=== PATIENT | female | born 1955 | race Caucasian/White ===

== ENCOUNTER 2022-04-21 13:50 | Outpatient (CLI) | payer OTHER, SELFPAY ==
--- NOTE | 2022-04-21 14:00 | CRLHL7_ITS ---
For Patients: As a result of the Cures Act, medical imaging exams and procedure reports are released immediately into your electronic medical record. You may view this report before your referring provider. If you have questions, please contact your health care provider. BILATERAL SCREENING MAMMOGRAM WITH COMPUTER-AIDED DETECTION AND TOMOSYNTHESIS TECHNIQUE: CC and MLO views were obtained. These mammographic images have been obtained using full-field digital technique. These mammographic images were interpreted with the benefit of computer-aided detection. Breast Tomosynthesis was used in this interpretation. COMPARISON FILM: 03/12/21, 03/11/20, 03/09/19. FINDINGS: There are scattered areas of fibroglandular density IMPRESSION: There is no radiographic evidence for malignancy. ASSESSMENT: BI-RADS Category 1: Negative RECOMMENDATION: Routine screening mammogram in 1 year. A lay language report of this examination will be provided to the patient. Kaushal Arceo M.D. Diagnostic Radiologist [email or web address] KIEL/juan diego Transcribed: 9:30 p.m. ROMAINE/Dictated by: Kaushal Arceo MD @ 04/22/2022 8:48:00 AM (Electronically Signed)
== END 2022-04-21 13:51 | disposition home or self-care (01) ==
LOC: MAMMO 13:52
PROVIDERS: PCP Internal Medicine; Visit Provider Internal Medicine
DX: Z12.31 Encounter for screening mammogram for malignant neoplasm of breast (principal)
CPT/HCPCS: 77063; 77067

== ENCOUNTER 2022-08-10 07:31 | Outpatient (CLI) | payer OTHER, SELFPAY ==
[2022-08-10 09:32] LABS: Albumin* 4.2 g/dL (3.3-5.0); Chloride* 104 mmol/L (96-114); Potassium* 4.5 mmol/L (3.6-5.1); Sodium* 134 mmol/L (135-149)
[2022-08-10 09:34] LABS: Carbon Dioxide* 23 mmol/L (20-32); Cholesterol* 156 mg/dL (90-199); Creatinine* 0.7 mg/dL (0.5-1.5); Estimated Glomerular Filt Rate 96 ml/min
[2022-08-10 09:35] LABS: Alanine Aminotransferase* 24 U/L (4-35); Alkaline Phosphatase* 107 U/L (40-150); Aspartate Amino Transferase* 28 U/L (12-35); Blood Urea Nitrogen* 19 mg/dL (7-30); Glucose* 291 mg/dL (60-115); Total Protein* 6.5 g/dL (6.0-8.3); Triglycerides* 115 mg/dL (40-149)
[2022-08-10 09:36] LABS: HDL Cholesterol* 50 mg/dL (>=50); LDL Cholesterol Calculated 83 mg/dL (<100)
[2022-08-10 09:45] LABS: Creatinine Urine 234.2 mg/dL
[2022-08-10 09:49] LABS: Microalbumin Creatinine Ratio 20 mg/g (0-30); Microalbumin Urine 7 mg/dL
== END 2022-08-10 07:32 | disposition home or self-care (01) ==
PROVIDERS: PCP Internal Medicine; Visit Provider Internal Medicine
DX: E78.5 Hyperlipidemia, unspecified (principal); E11.9 Type 2 diabetes mellitus without complications; I10 Essential (primary) hypertension
CPT/HCPCS: 80053; 80061; 82043; 82570

== ENCOUNTER 2022-12-17 15:34 | Outpatient (CLI) | payer OTHER, SELFPAY ==
--- NOTE | 2022-12-17 15:30 | CRLHL7_ITS ---
For Patients: As a result of the Century Cures Act, medical imaging exams and procedure reports are released immediately into your electronic medical record. You may view this report before your referring provider. If you have questions, please contact your health care provider. DXA BONE MINERAL DENSITY STUDY Reason for exam: Asymptomatic age-related postmenopausal state. Current height (in): 65. Weight (lb): 220. Menopause age: 67. Ethnicity: white. 1. Have you had a previous hip or vertebral fracture? No. 2. Have you had any fractures during your adult life which did not result from significant trauma (e.g., auto accident)? No. 3. Did either of your parents have a hip fracture? No. 4. Do you smoke? No. 5. Have you ever taken Glucocorticoids? No. 6. Do you have rheumatoid arthritis? No. 7. Do you have secondary osteoporosis? No. 8. Do you drink 3 or more alcoholic drinks per day? No. 9. Are you being treated for osteoporosis? No. 10. Have you ever taken any of the following medications: Actonel, Evista, Fosamax, Miacalcin, Reclast, Boniva, Forteo, HRT (i.e. estrogen/hormone therapy), Protelos, Prolia, Vitamin D, Calcium, other ??? please specify. ANSWER: No. 11. Do you have any of the following medical conditions: Anorexia or bulimia, asthma or emphysema, end stage renal disease, hyperparathyroidism, any seizure disorders, cancer, inflammatory bowel diseases, hysterectomy, other ??? please specify. ANSWER: No. 12. What was your maximum height (inches)? 65. 13. Do you perform weight bearing exercise regularly? Yes. 14. Do you regularly consume dairy products? Yes. 15. Do you drink caffeinated beverages? Yes. 16. At what age did your period start? 14. 17. Are you premenopausal? No. 18. How many full term pregnancies have you had? 4. 19. Have you ever missed your period for more than 6 months in a row (not including or menopause)? No. TECHNIQUE: Bone mineral density study was performed using the [employer]. FINDINGS: The results of the study expressed as bone mineral density (BMD) are as follows: Lumbar spine L2 to L4: BMD: 1.021 g/cm2. T-score: -0.5. Z-score: 1.4. Neck Left: BMD: 0.838 g/cm2. T-score: -0.1. Z-score: 1.4. Right: BMD: 0.817 g/cm2. T-score: -0.3. Z-score: 1.3. Total Left: BMD: 0.984 g/cm2. T-score: 0.3. Z-score: 1.6. Right: BMD: 1.027 g/cm2. T-score: 0.7. Z-score: 2.0. IMPRESSION: Normal bone density. *Comparison exams done prior to 11/2019 were performed on different unit, [employer] Index. Kaushal Arceo M.D. Diagnostic Radiologist [email or web address] ROMAINE/Dictated by: Kaushal Arceo MD @ 12/17/2022 8:37:00 PM (Electronically Signed)
== END 2022-12-17 15:35 | disposition home or self-care (01) ==
PROVIDERS: PCP Internal Medicine; Visit Provider Internal Medicine
DX: Z78.0 Asymptomatic menopausal state (principal)
CPT/HCPCS: 77080

== ENCOUNTER 2023-05-23 07:04 | Outpatient (CLI) | payer OTHER, SELFPAY | END 2023-05-23 07:05 | disposition home or self-care (01) | LOC: AMB 05-25 12:11 | PROVIDERS: PCP Internal Medicine; Visit Provider Family Medicine | DX: R41.82 Altered mental status, unspecified (principal) | CPT/HCPCS: A0425; A0427 ==

== ENCOUNTER 2023-05-23 07:42 | Observation (INO) | payer OTHER, SELFPAY ==
[2023-05-23] VITALS (25 sets, daily range): BP systolic 149–249; BP diastolic 81–127; PULSE 59–74; RESP 16–18; TEMP 36.6–36.8; O2SAT 97–100; BMI 35.8; BMI 36.3
--- NOTE | 2023-05-23 07:46 | CRLHL7_ITS ---
For Patients: As a result of the Century Cures Act, medical imaging exams and procedure reports are released immediately into your electronic medical record. You may view this report before your referring provider. If you have questions, please contact your health care provider. INDICATION: Word-finding difficulty. TECHNIQUE: CT head without contrast. COMPARISON: None. FINDINGS: CSF spaces: Within normal limits for age. Brain parenchyma and extra-axial spaces: The chavez-white differentiation is normal. No sign of mass, hemorrhage, or midline shift. No extra-axial fluid collection. Skull base and calvarium: The visualized paranasal sinuses and mastoid air cells demonstrate no acute or significant findings. The visualized orbits are grossly unremarkable. No skull fractures. IMPRESSION: No acute findings. Please note that all CT scans at this facility use dose modulation, iterative reconstruction, and/or weight-based dosing when appropriate to reduce radiation dose to as low as reasonably achievable. Dictated by Liam Santo MD @ 05/23/2023 7:55:11 AM (Electronically Signed)
--- NOTE | 2023-05-23 07:50 | CRLHL7_ITS ---
For Patients: As a result of the Century Cures Act, medical imaging exams and procedure reports are released immediately into your electronic medical record. You may view this report before your referring provider. If you have questions, please contact your health care provider. CT ANGIOGRAM NECK DATE: 05/23/2023 CLINICAL HISTORY: Patient with focal neurological deficits. TECHNIQUE: Standard helical CT image acquisition of the neck up to the skull base after bolus intravenous contrast enhancement. 2D and 3D MIP images for post-processing were performed and interpreted on an independent workstation and 3D images were permanently archived. COMPARISON: CT same day. FINDINGS: The origins of the great vessels from the aortic arch are patent. The origin of the right vertebral artery is patent. The origin of the left vertebral artery is patent. The common carotid arteries are patent. There is no stenosis at the origin of the right internal carotid artery. There is no stenosis at the origin of the left internal carotid artery. The rest of the cervical segments of the internal carotid arteries are patent up to the skull base. The right vertebral artery is dominant. The cervical segments of the vertebral arteries are patent up to the skull base. The visualized lung apices are unremarkable. The thyroid gland is unremarkable. The soft tissues of the neck are unremarkable. There are degenerative changes in the cervical spine. IMPRESSION: Normal CTA of the neck. Please note that all CT scans at this facility use dose modulation, iterative reconstruction, and/or weight-based dosing when appropriate to reduce radiation dose to as low as reasonably achievable. Dictated by: Felicity Bauman MD @ 05/23/2023 08:17:16 (Electronically Signed)
--- NOTE | 2023-05-23 07:50 | CRLHL7_ITS ---
For Patients: As a result of the Century Cures Act, medical imaging exams and procedure reports are released immediately into your electronic medical record. You may view this report before your referring provider. If you have questions, please contact your health care provider. CT ANGIOGRAM HEAD DATE: 05/23/2023 CLINICAL HISTORY: Patient with focal neurological deficits. TECHNIQUE: Standard helical CT image acquisition through the intracranial circulation following intravenous administration of contrast material with bolus tracking. 2D and 3D MIP images for post-processing were performed and interpreted on an independent workstation and 3D images were permanently archived. COMPARISON: CT same day. FINDINGS: There is no proximal intracranial large vessel occlusion. There is intracranial atherosclerosis with a long-segment severe stenosis affecting the left P1 and P2 segments. There is no intracranial aneurysm. The right internal carotid artery is normal. The right middle cerebral artery and its branches are normal. The right anterior cerebral artery and its branches are normal. The left internal carotid artery is normal. The left middle cerebral artery and its branches are normal. The left anterior cerebral artery and its branches are normal. The anterior communicating artery is well visualized and appears normal. The right vertebral artery and PICA are normal. The left vertebral artery and PICA are normal. The right vertebral artery is dominant. The basilar artery is patent and appears normal. The right posterior cerebral artery is normal. The visualized venous structures are patent. IMPRESSION: 1. No proximal intracranial large vessel occlusion. 2. Intracranial atherosclerosis with a long-segment severe stenosis affecting the left P1 and P2 segments. Please note that all CT scans at this facility use dose modulation, iterative reconstruction, and/or weight-based dosing when appropriate to reduce radiation dose to as low as reasonably achievable. Dictated by: Felicity Bauman MD @ 05/23/2023 08:20:00 (Electronically Signed)
--- NOTE | 2023-05-23 08:03 | ED_ITS ---
HPI - General Adult General Chief complaint: Neuro Symptoms/Altered Deficit Stated complaint: stroke Time Seen by Provider: 05/23/23 07:45 History of Present Illness HPI narrative: Patient is a 68-year-old non-insulin diabetic who bed 630 this morning was up and had word-finding inability. Apparently no weakness was able to walk to the bathroom. Did seem like she had a mild frontal headache but that seems better now. She was brought in by ambulance. Her NIH stroke scale by my review right now is 0 the patient had a unenhanced CT scan it looks unremarkable, she had a CTA as well. A stroke code was called. The patient is moving all extremities talking normally now and passes the NIH Stroke Scale with a 0 score. Stroke neurology will be consulted. The patient denies chest pain, breathing problem, recent illness, recent abnormalities in her blood sugar. She is only on me tformin currently. She sees Dr. Shah in. She has been on aspirin small dose every day. She also has a history of elevated lipids., as well as elevated blood pressure and she is on atenolol. Related Data Home Medications Medication Instructions Recorded Confirmed aspirin 81 mg tablet,delayed 81 mg PO DAILY 02/10/22 05/23/23 release multivitamin 1 tab PO DAILY 02/10/22 05/23/23 omega-3 fatty acids 500 mg capsule 500 mg PO DAILY 02/10/22 05/23/23 ketoconazole 2 % topical cream 1 applic topical DAILY PRN 08/24/22 05/23/23 azithromycin 250 mg tablet 250 mg PO QWEEK 03/09/23 05/23/23 metronidazole 0.75 % topical cream 1 applic topical BID PRN 03/09/23 05/23/23 simvastatin 20 mg tablet 20 mg PO HS 05/23/23 05/23/23 Previous Rx's Medication Instructions Recorded atenolol 100 mg tablet 100 mg PO DAILY #90 tabs 11/23/22 metformin 1,000 mg tablet 1,000 mg PO BIDWMEAL #180 tabs 11/23/22 Allergies Allergy/AdvReac Type Severity Reaction Status Date / Time penicillin V Allergy Intermediate Fever, Verified 03/09/23 15:29 hives Sulfa drugs Allergy Severe Possibly Uncoded 03/09/23 15:29 swelling hives Review of Systems Status of ROS: Reports: 6 or more systems reviewed and unremarkable except as noted in History and below PFSH PFSH Surgical History 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 - Benign neoplasm of right breast (ICD-10) History of lump of right breast ?Z87.898 - Personal history of other specified conditions (ICD-10) History of tubal ligation (03/29/09) ?Z98.51 - Tubal ligation status (ICD-10) History of lumpectomy of left breast (03/29/09) ?Z98.890 - Other specified postprocedural states (ICD-10) History of section (03/29/09) ?Z98.891 - History of uterine scar from previous surgery (ICD-10) Social History Smoking Status: Former smoker Little interest or pleasure in doing things: not at all Feeling down, depressed, or hopeless: not at all Exam Narrative: Exam Narrative: Objective: Patient is alert orient x3 Lateral gaze vertical gaze and is normal No facial asymmetry tongue protrudes midline Neck is supple Chest is clear Heart rhythm without murmur occasional ectopic beat Abdomen benign soft nontender Extremities without edema neurologic nonfocal Patient moves all extremities she has 5/5 strength in all extremities, no pronator drift in either arms or her legs, she is able to hold them up for 10 seconds each She is able to repeat a sentence she is talking in normal sentences now. Her gross sensation in upper lower extremities is normal She able to perform hand squeezing and has a negative heel to kenny test bilaterally Const: Vital Signs, click to edit/add: Vital Signs - 24 hr 05/23/23 07:46 05/23/23 08:06 05/23/23 08:06 Temperature 97.9 F Pulse Rate 74 Pulse Rate [Pulse Oximeter] 65 Pulse Rate [Right Pulse Oximeter] 69 Respiratory Rate 18 Blood Pressure 228/107 H Blood Pressure [Ri ght Upper Arm] 249/127 H Pulse Oximetry 98 98 Oxygen Delivery Me thod Room Air 05/23/23 08:07 05/23/23 08:09 05/23/23 08:12 Temperature Pulse Rate 71 69 Pulse Rate [Pulse Oximeter] 65 Pulse Rate [Right Pulse Oximeter] Respiratory Rate Blood Pressure 227/116 H Blood Pressure [Ri ght Upper Arm] Pulse Oximetry 99 99 Oxygen Delivery Me thod 05/23/23 08:15 05/23/23 08:20 05/23/23 08:22 Temperature Pulse Rate 64 67 Pulse Rate [Pulse Oximeter] 65 Pulse Rate [Right Pulse Oximeter] Respiratory Rate Blood Pressure 221/110 H Blood Pressure [Ri ght Upper Arm] Pulse Oximetry 99 100 Oxygen Delivery Me thod 05/23/23 08:30 05/23/23 08:30 05/23/23 08:32 Temperature Pulse Rate 70 69 Pulse Rate [Pulse Oximeter] 65 Pulse Rate [Right Pulse Oximeter] Respiratory Rate Blood Pressure 207/104 H Blood Pressure [Ri ght Upper Arm] Pulse Oximetry 100 98 Oxygen Delivery Me thod 05/23/23 08:40 05/23/23 08:42 05/23/23 08:45 Temperature Pulse Rate 69 69 Pulse Rate [Pulse Oximeter] 65 Pulse Rate [Right Pulse Oximeter] Respiratory Rate Blood Pressure 217/106 H Blood Pressure [Ri ght Upper Arm] Pulse Oximetry 98 99 Oxygen Delivery Me thod 05/23/23 08:50 05/23/23 08:52 05/23/23 09:00 Temperature Pulse Rate 72 73 Pulse Rate [Pulse Oximeter] 65 Pulse Rate [Right Pulse Oximeter] Respiratory Rate Blood Pressure 226/115 H Blood Pressure [Ri ght Upper Arm] Pulse Oximetry 98 99 Oxygen Delivery Me thod 05/23/23 09:00 05/23/23 09:02 05/23/23 09:30 Temperature Pulse Rate 66 Pulse Rate [Pulse Oximeter] 65 65 Pulse Rate [Right Pulse Oximeter] Respiratory Rate Blood Pressure 227/109 H Blood Pressure [Ri ght Upper Arm] Pulse Oximetry 99 Oxygen Delivery Me thod Course Vital Signs Vital signs: Initial Vital Signs Pulse Rate 65 05/23/23 07:46 Pulse Rhythm Regular 05/23/23 07:46 Pulse Strength 0+ Absent 05/23/23 07:46 Vital Signs Pulse Rate 65 05/23/23 07:46 Temperature 97.9 F 05/23/23 08:06 Pulse Rate 65 05/23/23 09:30 Respiratory Rate 18 05/23/23 08:06 Blood Pressure 227/109 H 05/23/23 09:02 Pulse Oximetry 99 05/23/23 09:02 Oxygen Delivery Method Room Air 05/23/23 08:06 Medications Administered Medications: Discontinued Medications Generic Name Dose Route Start Last Admin Trade Name Bebeto PRN Reason Stop Dose Admin Acetaminophen 1,000 mg 05/23/23 09:47 05/23/23 09:26 Acetaminophen 500 Mg Tablet PO 05/23/23 09:48 1,000 mg ONCE ONE Administration Aspirin 324 mg 05/23/23 09:06 05/23/23 09:24 Aspirin 81 Mg Tab.Chew PO 05/23/23 09:07 324 mg ONCE ONE Administration Atorvastatin Calcium 40 mg 05/23/23 09:15 05/23/23 09:24 Atorvastatin Calcium 40 Mg Tablet PO 05/23/23 09:16 40 mg ONCE ONE Administration Clopidogrel Bisulfate 300 mg 05/23/23 09:06 05/23/23 09:25 Clopidogrel 300 Mg Tablet PO 05/23/23 09:07 300 mg ONCE ONE Administration Sodium Chloride 500 mls @ 500 mls/hr 05/23/23 07:46 05/23/23 09:29 0.9 % Sodium Chloride 500 Ml IV 05/23/23 08:45 Infused .Q1H ONE Infusion Medical Decision Making MDM Narrative Medical decision making narrative: [age] year white female with stroke-like symptoms, now largely resolved. The patient had a CT CTA in this will be sent to consulting radiology for over- read. Will also consult Stroke Neurology now and have evaluation and treatment planning. Patient her were comfortable plan The patient's last known well was about 10 30 last night when she went to bed, although she was able to get up and go to the bathroom until the night but there was no conversation with her at that time. He did notices today at 6:30 a.m. in the morning. Addendum 9:[address] bates stroke neurology he evaluated the patient reviewed the CT CTA. Patient's labs look reassuring her EKG shows normal sinus rhythm no acute changes by my read. The patient has some atherosclerotic disease in her P1 and P2 segment consistent with her symptoms. Dr. Wheeler felt that this is a TIA, and recommended 300 mg of Plavix today as well as aspirin and start 75 mg of Plavix tomorrow recommended atorvastatin 40 mg q.day as a switched from her statin, and also an echo and an MRI tomorrow. Because of her hypertension in her stroke-like symptoms recommended admission for telemetry and monitoring. Will discuss with Dr. BOWEN hospital staff. Lab Data Labs: Lab Results 05/23/23 Range/Units 08:11 WBC 7.61 (4.50-11.00) K/uL RBC 4.43 (4.00-5.20) m/uL Hgb 13.2 (12.0-16.0) gm/dL Hct 38.8 (33.0-51.0) % MCV 88 (80-100) fL MCH 30 (26-34) pg MCHC 34 (32-36) gm/dL RDW Coeff of Alyson 13.4 (11.5-15.5) % Plt Count 163 (140-440) K/uL Neut % (Auto) Not Reportable Lymph % (Auto) Not Reportable [facility] % (Auto) Not Reportable Eos % (Auto) Not Reportable Baso % (Auto) Not Reportable Neut # (Auto) Not Reportable Lymph # (Auto) Not Reportable [facility] # (Auto) Not Reportable Eos # (Auto) Not Reportable Baso # (Auto) Not Reportable INR 0.96 (0.91-1.10) Sodium 135 (135-149) mmol/L Potassium 4.7 (3.6-5.1) mmol/L Chloride 103 (96-114) mmol/L Carbon Dioxide 25 (20-32) mmol/L Anion Gap 7 (7-15) mEq/L BUN 21 (7-30) mg/dL Creatinine 0.7 (0.5-1.5) mg/dL Estimated Creat Clear 49.80 Estimated GFR 95 ml/min Glucose 171 H (60-115) mg/dL Calcium 9.3 (8.4-10.6) mg/dL Total Bilirubin 0.6 (0.1-1.5) mg/dL Direct Bilirubin 0.0 (0.0-0.5) mg/dL AST 26 (12-35) U/L ALT 20 (4-35) U/L Alkaline Phosphatase 101 (40-150) U/L Troponin I < 0.01 L (0.01-0.04) ng/mL C-Reactive Protein 0.7 (0.5-1.0) mg/dL NT-Pro-B Natriuret Pep 192 pg/mL Total Protein 6.7 (6.0-8.3) g/dL Albumin 4.3 (3.3-5.0) g/dL Ethyl Alcohol < 0.01 L (0.01-0.03) % Discharge Plan Discharge Clinical Impression: Diabetes mellitus, Neurological deficit, transient Patient Disposition: Admitted As Observation
[2023-05-23 08:19] LABS: Hematocrit 38.8 % (33.0-51.0); Hemoglobin* 13.2 gm/dL (12.0-16.0); Mean Corpuscular HGB Conc 34 gm/dL (32-36); Mean Corpuscular Hemoglobin 30 pg (26-34); Mean Corpuscular Volume 88 fL (80-100); Platelet Count* 163 K/uL (140-440); RDW Coefficient of Variation % 13.4 % (11.5-15.5); Red Blood Count 4.43 m/uL (4.00-5.20); White Blood Count* 7.61 K/uL (4.50-11.00)
[2023-05-23 08:20] LABS: Slide Review Reflex No
[2023-05-23] MEDS: 0.9 % SODIUM CHLORIDE 500 ML 500 ML IV (08:33)
[2023-05-23 08:34] LABS: Albumin* 4.3 g/dL (3.3-5.0); Chloride* 103 mmol/L (96-114); Sodium* 135 mmol/L (135-149)
[2023-05-23 08:35] LABS: Potassium* 4.7 mmol/L (3.6-5.1)
[2023-05-23 08:36] LABS: INR 0.96 (0.91-1.10); Prothrombin Time 13.3 Seconds
[2023-05-23 08:37] LABS: Alkaline Phosphatase* 101 U/L (40-150); Anion Gap 7 mEq/L (7-15); Aspartate Amino Transferase* 26 U/L (12-35); Bilirubin Total* 0.6 mg/dL (0.1-1.5); Carbon Dioxide* 25 mmol/L (20-32); Creatinine* 0.7 mg/dL (0.5-1.5); Estimated Glomerular Filt Rate 95 ml/min
[2023-05-23 08:38] LABS: Alanine Aminotransferase* 20 U/L (4-35); Blood Urea Nitrogen* 21 mg/dL (7-30); Calcium* 9.3 mg/dL (8.4-10.6); Glucose* 171 mg/dL (60-115); Total Protein* 6.7 g/dL (6.0-8.3)
[2023-05-23 08:40] LABS: C Reactive Protein* 0.7 mg/dL (0.5-1.0)
[2023-05-23 08:48] LABS: Ethanol* < 0.01 % (0.01-0.03); NT Pro B Type NatriureticPept* 192 pg/mL
[2023-05-23 08:49] LABS: Troponin I* < 0.01 ng/mL (0.01-0.04)
--- NOTE | 2023-05-23 09:15 | ED.NURSE ---
Patient went to bathroom. Complained of pounding headache on return to room. notified.
[2023-05-23] MEDS: ASPIRIN 81 MG TAB.CHEW 324 MG PO (09:24)
[2023-05-23] MEDS: ATORVASTATIN CALCIUM 40 MG TABLET PO (09:24)
[2023-05-23] MEDS: CLOPIDOGREL 300 MG TABLET PO (09:25)
[2023-05-23] MEDS: ACETAMINOPHEN 500 MG TABLET 1000 MG PO (09:26)
--- NOTE | 2023-05-23 12:26 | P.IMHP_ITS ---
Hospitalist- H&P: HPI History of Present Illness Date Seen: 05/23/23 Chief complaint: stroke Narrative: ADMISSION HISTORY AND PHYSICAL - HOSPITALIST Chief Complaint: Aphasic speech HPI: This is a 68-year-old female with a history of mild hypertension, type 2 diabetes on metformin, hyperlipidemia who presents with altered mental status and aphasic speech. Patient went to bed in her normal state of health last night. She said she had an uneventful day. At about 230 this morning she awoke and used her bathroom. No concerns. She woke up about 630 this morning and sat on the side of the bed. She was aware but unable to answer her 's questions. She had no motor difficulties as she then went to the restroom and got dressed. She was confused about being dressed. She could only use 1 or 2 word answers after some time of being completely aphasic. Her was very worried about this presentation and called 911. Symptoms were still present when EMS arrived. She arrived in our ED as a stroke code. As her evaluation in the ED progressed, her symptoms completely resolved. ER COURSE: Hypertensive, stroke code evaluation. Given Plavix 300 mg, 324 mg of aspirin and 40 mg of atorvastatin. Head CT and CTA were completed. No indication for thrombolytics or Interventional Neurology. Admitted to our hospital service for further evaluation CODE STATUS: FULL CODE EMERGENCY CONTACT PLAN: Primary Contact Dennis Howell Rel to Pat [phone] Cell Phone I've updated the PFSH, medications and allergies in the Expanse tabs. INVESTIGATIONS: LABS/MICRO/ECG/IMAGING 227/109. PULSE RATE 66. PULSE OX 99% ON ROOM AIR CBC unremarkable. Normal white blood cell count. Normal hemoglobin. Normal platelet count. INR normal. 0.96. Electrolytes are normal. Blood glucose 171. In February her A1c was 6.4. Troponin undetectable BNP 192 CRP 0.7 No acute findings on Head CT Normal CTA of the neck. 1. No proximal intracranial large vessel occlusion. 2. Intracranial atherosclerosis with a long-segment severe stenosis affecting the left P1 and P2 segments. -P1 and P2 are areas near the origin posterior cerebral artery REVIEW OF SYSTEMS: 12-point ROS completed with patient and negative unless otherwise stated in HPI or below. PHYSICAL EXAM: CONSTITUTIONAL: Patient appears calm and relates that she feels normal upon my examination in the room. VITAL SIGNS: see record. HEENT: Normocephalic, atraumatic. PERRL, EOMI, conjunctivae pink, no scleral icterus. Ears and nose externally normal. Pharynx normal. NECK: No JVD. No carotid bruit, no thyromegaly, no adenopathy. CHEST: Clear to auscultation bilaterally HEART: S1 and S2 normal. No harsh murmurs. Edema MUSCULOSKELETAL: No gross joint deformity or swelling. NEURO: Cranial nerves intact. Grossly intact. No asymmetric findings. SKIN: No rashes, petechiae, concerning changes PSYCHIATRIC: Euthymic. ADMIT TO MEDSURG: FLOOR CARE DVT: Lovenox GI: PO intake Time spent: Today I spent 75 minutes seeing the patient, discussing the patient with ER staff, reviewing Expanse and EPIC notes/diagnostics, discussing the care plan with our care time that includes social work, PT/OT, pharmacy, RT, [place] [facility] and documenting my impressions and plan in the medical record. 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 - Benign neoplasm of right breast (ICD-10) History of lump of right breast ?Z87.898 - Personal history of other specified conditions (ICD-10) History of tubal ligation (03/29/09) ?Z98.51 - Tubal ligation status (ICD-10) History of lumpectomy of left breast (03/29/09) ?Z98.890 - Other specified postprocedural states (ICD-10) History of section (03/29/09) ?Z98.891 - History of uterine scar from previous surgery (ICD-10) Family History (Updated 05/23/23 @ 14:43 by Lissette Martinez RN) Sister TIA (transient ischemic attack) Social History What is your current living situation?: I presently have a place to live Problems where you live: no known problems Problems where you live details: n/a In the past 12 months, utilities in danger of being shut off: no In past 12 months, lack of transportation kept you from medical appts, meetings, work, or getting things needed for daily living: no In the past 12 mos, have been you worried that your food would run out before you had money to buy more?: never true In the past 12 mos, the food you bought just didn't last and you didn't have money to buy more?: never true Smoking Status: Former smoker How often do you have a drink containing alcohol: 2-3 times a week How many standard drinks containing alcohol do you have on a typical day: 1 or 2 How often do you have six or more drinks on one occasion: Never AUDIT-C Alcohol total score: 3 Non-prescribed substance use: denies use Caffeine: Yes (2/3 cups of coffee) How often does anyone, including family, friends and others, physically hurt you : never How often does anyone, including family, friends and others, insult or talk down to you: never How often does anyone, including family, friends and others, threaten you with harm: never How often does anyone, including family, friends and others, scream or curse at you: never Little interest or pleasure in doing things: not at all Feeling down, depressed, or hopeless: not at all service: No Meds Home Medications and Allergies Home Medications Medication Instructions Recorded Confirmed Type aspirin 81 mg tablet,delayed 81 mg PO DAILY 02/10/22 05/23/23 History release multivitamin 1 tab PO DAILY 02/10/22 05/23/23 History omega-3 fatty acids 500 mg capsule 500 mg PO DAILY 02/10/22 05/23/23 History ketoconazole 2 % topical cream 1 applic topical DAILY PRN 08/24/22 05/23/23 History azithromycin 250 mg tablet 250 mg PO QWEEK PRN 03/09/23 05/23/23 History metronidazole 0.75 % topical cream 1 applic topical BID PRN 03/09/23 05/23/23 History simvastatin 20 mg tablet 20 mg PO HS 05/23/23 05/23/23 History Allergies Allergy/AdvReac Type Severity Reaction Status Date / Time Sulfa (Sulfonamide Allergy Severe Verified 05/23/23 12:48 Antibiotics) penicillin V Allergy Intermediate Fever, Verified 03/09/23 15:29 hives Exam Const: Vital Signs, click to edit/add: Vital Signs - 24 hr 05/23/23 07:46 05/23/23 08:06 05/23/23 08:06 Temperature 97.9 F Pulse Rate 74 Pulse Rate [Pulse Oximeter] 65 Pulse Rate [Right Pulse Oximeter] 69 Respiratory Rate 18 Blood Pressure 228/107 H Blood Pressure [Ri ght Upper Arm] 249/127 H Pulse Oximetry 98 98 Oxygen Delivery Me od Room Air 05/23/23 08:07 05/23/23 08:09 05/23/23 08:12 Temperature Pulse Rate 71 69 Pulse Rate [Pulse Oximeter] 65 Pulse Rate [Right Pulse Oximeter] Respiratory Rate Blood Pressure 227/116 H Blood Pressure [Ri ght Upper Arm] Pulse Oximetry 99 99 Oxygen Delivery Me thod 05/23/23 08:15 05/23/23 08:20 05/23/23 08:22 Temperature Pulse Rate 64 67 Pulse Rate [Pulse Oximeter] 65 Pulse Rate [Right Pulse Oximeter] Respiratory Rate Blood Pressure 221/110 H Blood Pressure [Ri ght Upper Arm] Pulse Oximetry 99 100 Oxygen Delivery Me thod 05/23/23 08:30 05/23/23 08:30 05/23/23 08:32 Temperature Pulse Rate 70 69 Pulse Rate [Pulse Oximeter] 65 Pulse Rate [Right Pulse Oximeter] Respiratory Rate Blood Pressure 207/104 H Blood Pressure [Ri ght Upper Arm] Pulse Oximetry 100 98 Oxygen Delivery Me thod 05/23/23 08:40 05/23/23 08:42 05/23/23 08:45 Temperature Pulse Rate 69 69 Pulse Rate [Pulse Oximeter] 65 Pulse Rate [Right Pulse Oximeter] Respiratory Rate Blood Pressure 217/106 H Blood Pressure [Ri ght Upper Arm] Pulse Oximetry 98 99 Oxygen Delivery Me thod 05/23/23 08:50 05/23/23 08:52 05/23/23 09:00 Temperature Pulse Rate 72 73 Pulse Rate [Pulse Oximeter] 65 Pulse Rate [Right Pulse Oximeter] Respiratory Rate Blood Pressure 226/115 H Blood Pressure [Ri ght Upper Arm] Pulse Oximetry 98 99 Oxygen Delivery Me thod 05/23/23 09:00 05/23/23 09:02 05/23/23 09:30 Temperature Pulse Rate 66 Pulse Rate [Pulse Oximeter] 65 65 Pulse Rate [Right Pulse Oximeter] Respiratory Rate Blood Pressure 227/109 H Blood Pressure [Ri ght Upper Arm] Pulse Oximetry 99 Oxygen Delivery [facility] Hospitalist - H&P: Result Labs Labs: Short CBC 05/23/23 Range/Units 08:11 WBC 7.61 (4.50-11.00) K/uL Hgb 13.2 (12.0-16.0) gm/dL Hct 38.8 (33.0-51.0) % Plt Count 163 (140-440) K/uL BMP 05/23/23 08:11 Sodium 135 Potassium 4.7 Chloride 103 Carbon Dioxide 25 BUN 21 Creatinine 0.7 Glucose 171 H Calcium 9.3 Cardiac Enzymes 05/23/23 Range/Units 08:11 Troponin I < 0.01 L (0.01-0.04) ng/mL Liver Function 05/23/23 Range/Units 08:11 Total Bilirubin 0.6 (0.1-1.5) mg/dL Direct Bilirubin 0.0 (0.0-0.5) mg/dL AST 26 (12-35) U/L ALT 20 (4-35) U/L Alkaline Phosphatase 101 (40-150) U/L Albumin 4.3 (3.3-5.0) g/dL Assessment and Plan Assessment and plan (1) Neurological deficit, transient: Problem comment: -neuro consult reviewed - MR and echo planned on 05/24 -telemetry on -imaging reviewed -medication management reviewed and will continue with daily aspirin, Plavix and atorvastatin -2.5mg lopressor IV q4 hours with hold parameters. Neuro consult 05/23/23 68-year-old woman with a probable transient ischemic attack today. Given the description of her speech trouble, I suspect she had receptive type aphasia. CT head is negative. CT angiogram does show left BLOWER BLAST FURNACE long segment moderate to severe stenosis. I suspect she had a TIA within the BLOWER BLAST FURNACE territory. This would fit her clinical picture. She is diabetic and presents severely hypertensive. Her ABCD2 score is high. I do think she should be admitted for TIA workup and monitoring. 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 Of note I did consider sleep inertia, however the description of receptive aphasia and CTA findings very much point to a TIA. - admit to floor - Continuous cardiac monitoring - continue ASA 81 mg daily - One time load of Plavix 300 mg oral then Plavix 75 mg daily - Length of DAPT based on the remainder of workup - Given that patient had a TIA, okay to slowly start to decrease blood pressure - NS for hydration - MRI brain without contrast - TTE to rule out cardiac source - Lipid Panel with LDL goal of less than 70 - Switch simvastatin to atorvastatin 40 mg daily - neuro checks - SCDs - reason for no lytic: Symptoms resolved - reason for no MIRACLE: No LVO Status: Acute (2) Type 2 diabetes mellitus: Problem comment: -continue with Accu-Cheks, sliding scale insulin and her baseline metformin Dxed with pre-diabetes 124 01/03, progressed to diabetes 04/07, metformin started 12/11 Status: Acute (3) Hyperlipidemia: Problem comment: statin started 03/02 - dose and agent changed in May of 2023 to atorvastatin 40 mg daily Status: Acute (4) Essential hypertension: Problem comment: -atenolol 100 mg daily is currently on hold to allow for permissive hypertension -with her ischemic stroke/TIA status our goal is to keep her blood pressure high but not higher than 220/120. I have p.r.n. metoprolol if she does amount in extreme hypertensive response. Status: Acute
[2023-05-23 14:20] LABS: Hemoglobin A1C* 5.8 % (0-5.6)
[2023-05-23] MEDS: METFORMIN 1,000 MG TABLET 1000 MG PO (17:34)
[2023-05-23] MEDS: ENOXAPARIN 40 MG/0.4 ML INJ SUBCUT (20:46)
[2023-05-23] MEDS: SODIUM CHLORIDE 0.9 % (FLUSH) 10 ML SYRINGE 5 ML IVF (20:47)
[2023-05-23] MEDS: ACETAMINOPHEN 325 MG TABLET PO (20:58)
[2023-05-23] MEDS: MELATONIN 3 MG TABLET PO (22:37)
[2023-05-24 03:00] VITALS: BP 154/87; PULSE 57; RESP 16; O2SAT 98
[2023-05-24 06:30] LABS: Hematocrit 37.5 % (33.0-51.0); Mean Corpuscular HGB Conc 35 gm/dL (32-36); Mean Corpuscular Hemoglobin 30 pg (26-34); Mean Corpuscular Volume 86 fL (80-100); Platelet Count* 160 K/uL (140-440); Red Blood Count 4.38 m/uL (4.00-5.20); White Blood Count* 5.03 K/uL (4.50-11.00)
--- NOTE | 2023-05-24 06:42 | PC.NURSE ---
End of shift [id number]: A&O, pleasant and cooperative. Hypertensive VS otherwise stable. Nuero?s q4h unremarkable. Pt reports headache. PRN Tylenol given w/ stated relief. Up at [facility]ona.
[2023-05-24 06:43] LABS: Slide Review Reflex No
[2023-05-24 06:44] LABS: Chloride* 107 mmol/L (96-114); Potassium* 3.7 mmol/L (3.6-5.1); Sodium* 137 mmol/L (135-149)
[2023-05-24 06:47] LABS: Anion Gap 6 mEq/L (7-15); Blood Urea Nitrogen* 18 mg/dL (7-30); Carbon Dioxide* 24 mmol/L (20-32); Creatinine* 0.7 mg/dL (0.5-1.5); Estimated Glomerular Filt Rate 95 ml/min; Glucose* 145 mg/dL (60-115)
[2023-05-24 06:48] LABS: Calcium* 9.1 mg/dL (8.4-10.6)
[2023-05-24 07:00] VITALS: BP 181/83; PULSE 56; PULSE 57; RESP 16; TEMP 36.3; O2SAT 98
--- NOTE | 2023-05-24 07:00 | CRLHL7_ITS ---
For Patients: As a result of the Cures Act, medical imaging exams and procedure reports are released immediately into your electronic medical record. You may view this report before your referring provider. If you have questions, please contact your health care provider. Indication: Transient ischemic attack. Technique: Multiplanar, multisequence MRI of the brain was performed without intravenous contrast. Comparison: CT head 05/23/2023. MR brain 01/14/2017. Findings: The pituitary gland and clivus appear intact. Craniocervical junction is preserved. There is no restricted diffusion. No intracranial hemorrhage. The ventricles are proportionate to the cerebral sulci. The 4th ventricle appears midline. The basal cisterns appear patent. No abnormal extra-axial fluid collection identified. Mild parenchymal volume loss. Progressed mild to moderate scattered periventricular and juxta cortical T2 FLAIR hyperintense white matter lesions. Several of these lesions are oriented perpendicular to the corpus callosum. There is no intracranial mass, abnormal mass-effect or midline shift identified. Major intracranial vascular flow voids appear grossly intact. Both globes are preserved. Impression: 1. No acute/subacute infarct. 2. Nonspecific mild to moderate white matter disease. Several lesions have an appearance which may suggest demyelinating disease in the appropriate clinical scenario. Otherwise appearance may be seen as a result of chronic ischemic microvascular disease. Overall these have progressed in the interval since 01/14/2017. Dictated by Steven Main MD @ 05/24/2023 10:30:43 AM (Electronically Signed)
[2023-05-24 07:04] LABS: Troponin I* < 0.01 ng/mL (0.01-0.04)
[2023-05-24 07:14] LABS: Prothrombin Time 14.9 Seconds
[2023-05-24] MEDS: METOPROLOL TARTRATE 1 MG/ML inj 2.5 MG IVP (09:34)
[2023-05-24] MEDS: METFORMIN 1,000 MG TABLET 1000 MG PO (09:35)
[2023-05-24] MEDS: ASPIRIN 81 MG TABLET EC PO (09:35)
[2023-05-24] MEDS: MULTIVITAMIN/MINERALS 1 TABLET 1 TAB PO (09:36)
[2023-05-24] MEDS: atenoloL 50 MG TABLET 100 MG PO (09:36)
[2023-05-24] MEDS: SODIUM CHLORIDE 0.9 % (FLUSH) 10 ML SYRINGE 5 ML IVF (09:37)
[2023-05-24 11:00] VITALS: BP 189/85; PULSE 63; RESP 16; O2SAT 98
[2023-05-24] MEDS: CLOPIDOGREL 75 MG TABLET PO (11:46)
[2023-05-24] MEDS: ATORVASTATIN CALCIUM 40 MG TABLET PO (11:46)
--- NOTE | 2023-05-24 13:33 | PM.DS1 ---
DS: Providers Provider Date Seen: 05/24/23 Date of admission: 05/23/23 11:29 Primary care physician: Melissa Gillette MD Admitting Clinician: [facility] Attending Physician on discharge: [facility] Date of Discharge: 05/24/23 DS: Diagnosis Discharge Diagnosis (1) Neurological deficit, transient: Status: Acute Problem details: -neuro consult reviewed - MR and Echo ordered while here on observation -telemetry demonstrated NSR -imaging reviewed -medication management reviewed and will continue with daily aspirin, Plavix and atorvastatin at discharge as well as betablocker -outpatient neuro follow up Neuro consult 05/23/23 -QUINTANILLA 68-year-old woman with a probable transient ischemic attack today. Given the description of her speech trouble, I suspect she had receptive type aphasia. CT head is negative. CT angiogram does show left OPERATIONAL INTELLIGENCE ANALYST long segment moderate to severe stenosis. I suspect she had a TIA within the OPERATIONAL INTELLIGENCE ANALYST territory. This would fit her clinical picture. She is diabetic and presents severely hypertensive. Her ABCD2 score is high. I do think she should be admitted for TIA workup and monitoring. 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 Of note I did consider sleep inertia, however the description of receptive aphasia and CTA findings very much point to a TIA. Brain MR 05/24/23 1. No acute/subacute infarct. 2. Nonspecific mild to moderate white matter disease. Several lesions have an appearance which may suggest demyelinating disease in the appropriate clinical scenario. Otherwise appearance may be seen as a result of chronic ischemic microvascular disease. Overall these have progressed in the interval since 01/14/2017. (2) Type 2 diabetes mellitus: Status: Acute Problem details: -continue with Accu-Cheks, sliding scale insulin and her baseline metformin Dxed with pre-diabetes 124 01/03, progressed to diabetes 04/07, metformin started 12/11 (3) Hyperlipidemia: Status: Acute Problem details: statin started 03/02 - dose and agent changed in May of 2023 to atorvastatin 40 mg daily (4) Essential hypertension: Status: Acute Problem details: -atenolol 100 mg daily is currently on hold to allow for permissive hypertension -with her ischemic stroke/TIA status our goal is to keep her blood pressure high but not higher than 220/120. I have p.r.n. metoprolol if she does amount in extreme hypertensive response. DS: Summary Hospital Course Hospital Course: FINAL DIAGNOSIS/FOLLOW UP ISSUES: 1. TIA - should see neuro in the next 4-6 weeks. Continue clopidogrel, aspirin, atorvastatin as outlined. BRIEF HOSPITAL COURSE: Patient was admitted for overnight. Synopsis of acute inpatient issues are outlined above. Chronic medical conditions with notable findings outlined above. DISCHARGE MEDICATIONS: See Reconciled list - SIGNIFICANT CHANGES: Plavix 75 mg q.day Aspirin 81 mg daily Atorvastatin 40 mg daily Specific instructions to the patient and follow-up are outlined below. REVIEW OF SYSTEMS No new chest pain or dyspnea Pain controlled No voiding difficulties Tolerating diet challenge PHYSICAL EXAM: CONSTITUTIONAL: Alert oriented. VITAL SIGNS: see record. HEENT: Normocephalic, atraumatic. PERRL, EOMI, conjunctivae pink, no scleral icterus. Ears and nose externally normal. Pharynx normal. NECK: No JVD. No carotid bruit, no thyromegaly, no adenopathy. CHEST: Clear to auscultation bilaterally. HEART: S1 and S2 normal. Edema ABDOMEN: Soft, nontender. Normal bowel sounds. MUSCULOSKELETAL: No gross joint deformity or swelling. NEURO: Cranial nerves intact. Grossly intact. No asymmetric findings. SKIN: No rashes, petechiae, concerning changes PSYCHIATRIC: Mood euthymic. DISPOSITION: Home with spouse Time spent on discharge 37 minutes. Status at Discharge Functional status at discharge: independent ambulation Overall status at discharge: patient is back to baseline Time Spent with Patient Time attestation: Total time spent providing and/or coordinating discharge services: Time spent: Greater than 30 minutes Exam Const: Vital Signs, click to edit/add: Vital Signs - 24 hr 05/23/23 15:00 05/23/23 15:00 05/23/23 15:00 Temperature 98 F Pulse Rate 68 Pulse Rate [Pulse Oximeter] 65 65 Respiratory Rate 18 18 Blood Pressure [Le ft Arm] 189/92 H Pulse Oximetry 97 Oxygen Delivery Me thod Room Air 05/23/23 19:29 05/23/23 22:45 05/23/23 23:00 Temperature 98.2 F Pulse Rate 71 Pulse Rate [Pulse Oximeter] 68 59 L Respiratory Rate 18 16 Blood Pressure [Le ft Arm] 189/90 H 149/81 H Pulse Oximetry 98 97 Oxygen Delivery Me thod Room Air Room Air 05/24/23 03:00 05/24/23 07:00 05/24/23 07:00 Temperature 97.3 F L Pulse Rate Pulse Rate [Pulse Oximeter] 57 L 56 L 56 L Respiratory Rate 16 16 16 Blood Pressure [Le ft Arm] 154/87 H 181/83 H Pulse Oximetry 98 98 Oxygen Delivery Me thod Room Air Room Air 05/24/23 07:00 05/24/23 11:00 Temperature Pulse Rate 57 L Pulse Rate [Pulse Oximeter] 63 Respiratory Rate 16 Blood Pressure [Le ft Arm] 189/85 H Pulse Oximetry 98 Oxygen Delivery Wy thod Room Air DS: Data Data Completed and Pending Labs on day of discharge: Labs from last 24 hours 05/24/23 05/23/23 05/23/23 05:35 13:45 08:11 WBC 5.03 RBC 4.38 Hgb 13.0 Hct 37.5 MCV 86 MCH 30 MCHC 35 Plt Count 160 INR 1.10 Sodium 137 Potassium 3.7 Chloride 107 Carbon Dioxide 24 Anion Gap 6 L BUN 18 Creatinine 0.7 Estimated Creat Clear 49.80 Estimated GFR 95 Glucose 145 H Hemoglobin A1c 5.8 H Calcium 9.1 Troponin I < 0.01 L Lab Acknowledgement Test Added Discharge Plan Discharge Disposition: Home, Self-Care Date of Admission: 05/23/23 10:06 Attending Physician on Admission: Yen Oshea Attending Provider on Discharge: Yen Oshea Primary Care Provider: Melissa Gillette Condition: Stable Anticipated Discharge Date/Time: 05/24/23 17:38 Discharge Medications: New atorvastatin 40 mg Tablet 40 mg PO HS Qty: 30 0RF clopidogrel 75 mg Tablet 75 mg PO DAILY Qty: 30 0RF Continued metronidazole 0.75 % cream 1 applic topical BID PRN aspirin 81 mg tablet,delayed release (DR/EC) 81 mg PO DAILY omega-3 fatty acids 500 mg capsule 500 mg PO DAILY multivitamin Tablet 1 tab PO DAILY ketoconazole 2 % cream 1 applic topical DAILY PRN azithromycin 250 mg tablet 250 mg PO QWEEK PRN Rx Instructions: Take 1 tablets weekly, NEEDED metformin 1,000 mg tablet 1,000 mg PO BIDWMEAL Qty: 180 3RF atenolol 100 mg tablet 100 mg PO DAILY Qty: 90 3RF Discontinued simvastatin 20 mg tablet 20 mg PO HS Discharge Orders: Discharge Order (Routine); Ordered 05/24/23 Ordered By: Yen Oshea Activity Level: Activity as Tolerated Discharge Diet: Regular Follow Up Appointments: [facility]- Neurology [Provider Group] - 06/07/23 ([place] [facility] - [facility]. TIA f/u hospitalization) Melissa Gillette MD [Primary Care Provider] - 06/07/23 (2-3 weeks) Forms: [employer] Info Instructions Hospital Course: FINAL DIAGNOSIS/FOLLOW UP ISSUES: 1. TIA - should see neuro in the next 4-6 weeks. Continue clopidogrel, aspirin, atorvastatin as outlined. BRIEF HOSPITAL COURSE: Patient was admitted for overnight. Synopsis of acute inpatient issues are outlined above. Chronic medical conditions with notable findings outlined above. DISCHARGE MEDICATIONS: See Reconciled list - SIGNIFICANT CHANGES: Plavix 75 mg q.day Aspirin 81 mg daily Atorvastatin 40 mg daily Specific instructions to the patient and follow-up are outlined below. REVIEW OF SYSTEMS No new chest pain or dyspnea Pain controlled No voiding difficulties Tolerating diet challenge PHYSICAL EXAM: CONSTITUTIONAL: Alert oriented. VITAL SIGNS: see record. HEENT: Normocephalic, atraumatic. PERRL, EOMI, conjunctivae pink, no scleral icterus. Ears and nose externally normal. Pharynx normal. NECK: No JVD. No carotid bruit, no thyromegaly, no adenopathy. CHEST: Clear to auscultation bilaterally. HEART: S1 and S2 normal. Edema ABDOMEN: Soft, nontender. Normal bowel sounds. MUSCULOSKELETAL: No gross joint deformity or swelling. NEURO: Cranial nerves intact. Grossly intact. No asymmetric findings. SKIN: No rashes, petechiae, concerning changes PSYCHIATRIC: Mood euthymic. DISPOSITION: Home with spouse Time spent on discharge 37 minutes.
[2023-05-24 15:00] VITALS: BP 181/101; PULSE 56; PULSE 57; RESP 16; TEMP 36.5; O2SAT 97
--- NOTE | 2023-05-24 16:17 | REH.OT ---
OT: OT/PT initially received orders, however MD reports no therapy evals needed with patient returning to baseline. Orders were discontinued per MD.
--- NOTE | 2023-05-24 20:19 | PC.NURSE ---
Nursing Care Hours: [id number] Pt this shift calm and cooperative with cares, alert and oriented. No weakness. Gait steady. Pt eating and drinking sufficiently. Voiding independently. No c/o pain. Neuro video meeting and ECHO done today. IV x2 removed for discharge. Instructions went over with pt. No questions per pt. Tobacco Sampler walked with pt out to vehicle, pt left in stable condition.
== END 2023-05-24 18:00 | disposition home or self-care (01) ==
LOC: ED 09:14 → MEDSURG 09:46 → ED 09:48 → MEDSURG 09:56 → ED 10:04 → MEDSURG 10:05 → ED 10:06 → MEDSURG 10:07
PROVIDERS: Admitting Provider Orthopaedic Surgery; Emergency Provider Family Medicine; PCP Internal Medicine; Visit Provider Family Medicine
DX: G45.9 Transient cerebral ischemic attack, unspecified (principal); I10 Essential (primary) hypertension; E11.9 Type 2 diabetes mellitus without complications; E78.5 Hyperlipidemia, unspecified; Z79.82 Long term (current) use of aspirin; Z79.84 Long term (current) use of oral hypoglycemic drugs; D24.1 Benign neoplasm of right breast; Z87.898 Personal history of other specified conditions; Z98.51 Tubal ligation status; Z98.890 Other specified postprocedural states; Z98.891 History of uterine scar from previous surgery; Z87.891 Personal history of nicotine dependence
CPT/HCPCS: 36415; 70450; 70496; 70498; 70551; 80048; 80076; 82077; 82962; 83036; 83880; 84484; 85025; 85027; 85610; 86140; 93005; 93306; 96360; 96361; 96372; 96374; 99211; 99285; 99291; G0378; A9153; A9270; J1650; J7120; Q9967

== ENCOUNTER 2023-06-07 10:35 | Outpatient (CLI) | payer OTHER, SELFPAY ==
--- NOTE | 2023-06-07 10:45 | CRLHL7_ITS ---
For Patients: As a result of the Century Cures Act, medical imaging exams and procedure reports are released immediately into your electronic medical record. You may view this report before your referring provider. If you have questions, please contact your health care provider. BILATERAL SCREENING MAMMOGRAM WITH COMPUTER-AIDED DETECTION AND TOMOSYNTHESIS TECHNIQUE: CC and MLO views were obtained. These mammographic images have been obtained using full-field digital technique. These mammographic images were interpreted with the benefit of computer-aided detection. Breast Tomosynthesis was used in this interpretation. COMPARISON FILM: 04/21/22, 03/12/21, 03/11/20. FINDINGS: There are scattered areas of fibroglandular density IMPRESSION: There is no radiographic evidence for malignancy. ASSESSMENT: BI-RADS Category 1: Negative RECOMMENDATION: Routine screening mammogram in 1 year. A lay language report of this examination will be provided to the patient. TATO DIXON MD Diagnostic/Nuclear Medicine Radiologist [email or web address] ARVIN/[email or web address] [email or web address] be/Dictated by: Tato Dixon MD @ 06/07/2023 12:07:00 PM (Electronically Signed)
== END 2023-06-07 10:36 | disposition home or self-care (01) ==
LOC: MAMMO 10:36
PROVIDERS: PCP Internal Medicine; Visit Provider Internal Medicine
DX: Z12.31 Encounter for screening mammogram for malignant neoplasm of breast (principal)
CPT/HCPCS: 77063; 77067

== ENCOUNTER 2023-08-23 08:56 | Outpatient (REF) | payer OTHER, SELFPAY ==
[2023-08-23 10:09] LABS: INR 0.95 (0.91-1.10); Prothrombin Time 13.2 Seconds
[2023-08-23 10:10] LABS: Partial Thromboplastin Time* 30 Seconds (23-33)
== END 2023-08-23 08:57 | disposition home or self-care (01) ==
LOC: NPINS 08:56
PROVIDERS: PCP Internal Medicine; Visit Provider Psychiatry & Neurology Neurology
DX: E11.9 Type 2 diabetes mellitus without complications (principal); Z79.84 Long term (current) use of oral hypoglycemic drugs; E78.2 Mixed hyperlipidemia; Z86.73 Personal history of transient ischemic attack (TIA), and cerebral infarction without residual deficits
CPT/HCPCS: 80053; 80061; 82043; 82570; 85610; 85730

== ENCOUNTER 2024-02-24 07:35 | Outpatient (CLI) | payer OTHER, SELFPAY | END 2024-02-24 07:36 | disposition home or self-care (01) | LOC: NFLDREF 02-28 15:48 | PROVIDERS: PCP Internal Medicine; Referring Provider Internal Medicine; Visit Provider Internal Medicine | DX: E78.5 Hyperlipidemia, unspecified (principal) | CPT/HCPCS: 80061 ==

== ENCOUNTER 2024-08-24 07:26 | Outpatient (CLI) | payer OTHER, SELFPAY | END 2024-08-24 07:27 | disposition home or self-care (01) | LOC: NFLDREF 08-25 07:07 | PROVIDERS: PCP Internal Medicine; Referring Provider Internal Medicine; Visit Provider Internal Medicine | DX: E11.9 Type 2 diabetes mellitus without complications (principal); Z79.84 Long term (current) use of oral hypoglycemic drugs | CPT/HCPCS: 80053; 82043; 82570 ==

== ENCOUNTER 2024-08-24 07:31 | Outpatient (CLI) | payer OTHER, SELFPAY | END 2024-08-24 07:32 | disposition home or self-care (01) | LOC: MAMMO 07:32 | PROVIDERS: PCP Internal Medicine; Visit Provider Internal Medicine | DX: Z12.31 Encounter for screening mammogram for malignant neoplasm of breast (principal) | CPT/HCPCS: 77063; 77067 ==

== ENCOUNTER 2024-09-07 09:25 | Outpatient (CLI) | payer OTHER, SELFPAY ==
[2024-09-05 13:36] LABS: Vitamin D 25 Hydroxy* 24 ng/mL (30-80)
[2024-09-05 14:27] LABS: Vitamin B12* > 1000 pg/mL (243-894)
== END 2024-09-07 09:26 | disposition home or self-care (01) ==
LOC: NPINS 09:26
PROVIDERS: PCP Internal Medicine; Visit Provider Psychiatry & Neurology Neurology
DX: G37.9 Demyelinating disease of central nervous system, unspecified (principal)
CPT/HCPCS: 82306; 82607

== ENCOUNTER 2025-02-22 07:29 | Outpatient (CLI) | payer OTHER, SELFPAY | END 2025-02-22 07:30 | disposition home or self-care (01) | LOC: NFLDREF 02-28 07:27 | PROVIDERS: PCP Internal Medicine; Referring Provider Internal Medicine; Visit Provider Internal Medicine | DX: E78.5 Hyperlipidemia, unspecified (principal) | CPT/HCPCS: 80061 ==

== ENCOUNTER 2025-04-20 05:34 | Outpatient (CLI) | payer OTHER, SELFPAY | END 2025-04-20 05:35 | disposition home or self-care (01) | PROVIDERS: PCP Internal Medicine; Visit Provider Family Medicine | DX: R56.9 Unspecified convulsions (principal) | CPT/HCPCS: A0425; A0427 ==

== ENCOUNTER 2025-04-20 06:23 | Emergency (ER) | payer OTHER, SELFPAY ==
[2025-04-20] VITALS (19 sets, daily range): BP systolic 113–151; BP diastolic 56–91; PULSE 66–92; RESP 16; TEMP 36.8; O2SAT 94–100; BMI 35.8
--- OUTSIDE RECORDS SUMMARY | 2025-04-20 06:25 | XMS_ITS | Clinical Summary ---
Author Organization [facility] Address [address] , [address] [place] [address] Phone Care Team Providers Care Autism Teacher Name Role [facility] Unava ilable Conditions or Problems Problem Name Problem Code Onset Date Status Entry Date Provider Comment Standard Description Annotate Vitamin D deficiency 15272900 (SNOMED CT) 01/29 Active 01/29 Radha Paula DNP,CORPORATE BOND TRADER,CN P Vitamin D deficiency Demyelinating COAL WASHER TENDER disease 7451504 (SNOMED CT) 01/23 Active 01/23 Fran Humphrey MD Demyelinating disease of central nervous system ELIZABETH positive [id number] (SNOMED CT) 11/16 Active 11/16 Radha Paula DNP,CORPORATE BOND TRADER,CN P Raised antinuclear antibody Abnormal brain MRI 098766264 (SNOMED CT) 08/16 Active 08/16 Fran Humphrey MD Magnetic resonance imaging of brain abnormal Migraine aura without headache 081622720 (SNOMED CT) 08/16 Active 08/16 Fran Humphrey MD Migraine aura without headache Memory deficit or lapses 323750642 (SNOMED CT) 08/16 Active 08/16 Fran Humphrey MD Memory impairment Word finding difficulty 881344159 (SNOMED CT) 08/16 Active 08/16 Fran Humphrey MD Word finding difficulty Medications Medication Instructions Start Date Stop Date Generic Name NDC Provider VALSARTAN 80 MG TABS 01/29 valsartan [id number] Radha Paula DNP,CORPORATE BOND TRADER,SALESPERSON WOMEN'S HATS VALSARTAN-HYDRO CHLOROTHIAZIDE 80-12.5 MG TABS valsartan-hydroc h lorothiazide 01862443804 Radha Tyson Rechtzigel DNP,CORPORATE BOND TRADER,SALESPERSON WOMEN'S HATS GLATIRAMER ACETATE 40 MG/ML SOSY 40 mg subcu 3 times per week at least 48 hours apart 12/25 glatiramer [id number] Radha Tyson Rechtzigel DNP,CORPORATE BOND TRADER,SALESPERSON WOMEN'S HATS GLATIRAMER ACETATE 40 MG/ML SOSY Inject 1 syringe subcutaneously three times a week at least 48 hours apart glatiramer [id number] Radha Tyson Rechtzigel DNP,CORPORATE BOND TRADER,SALESPERSON WOMEN'S HATS vitamin b12 vitamin b12 Radha Marbella Rechtzigel DNP,CORPORATE BOND TRADER,SALESPERSON WOMEN'S HATS GLATIRAMER ACETATE 40 MG/ML SOSY 40 mg subcu 3 times per week at least 48 hours apart 12/25 glatiramer [id number] Fran Hmuphrey MD ASPIRIN 325 MG TABS 11/07 aspirin 54356099309 Radha Tyson Rechtzigel DNP,CORPORATE BOND TRADER,SALESPERSON WOMEN'S HATS AZITHROMYCIN 250 MG TABS azithromycin 18373032300 Fran Cline MD KETOCONAZOLE 2 % CREA ketoconazole 44697820786 Fran flores MD METFORMIN HCL 1000 MG TABS metformin 49262115150 Fran flores MD ATORVASTATIN CALCIUM 40 MG TABS atorvastatin 99268797438 Fran flores MD CLOPIDOGREL BISULFATE 75 MG TABS clopidogrel 59435355035 Fran Humphrey MD VALSARTAN 80 MG TABS 01/29 valsartan 03342343750 Fran Humphrey MD ATENOLOL 100 MG TABS atenolol 68003105487 Fran Humphrey MD ASPIRIN 325 MG TABS 11/07 aspirin 10416060304 Fran Humphrey MD MULTI-VITAMIN TABS multivitamin 42849948207 Fran flores MD RA FISH OIL 1000 MG CAPS docosahexaenoic acid-epa 15065770400 Fran Humphrey MD Medications Administered No information available. Allergies, Adverse Reactions, Alerts Allergy Name Reaction Description Start Date Severity Status Provider BACTRIM hives and swelling Critical No Eliseo kenn Active Radha Tyson Rechtzigel DNP,CORPORATE BOND TRADER,SALESPERSON WOMEN'S [employer]ATS SULFAMETHOXAZOLE- TRIMETHOPRIM hives and swelling Critical Active Radha Tyson Rec htzigel DNP,CORPORATE BOND TRADER,SALESPERSON WOMEN'S HATS BACTRIM hives and swelling Critical No Eliseo kenn Active Radha Tyson Rechtzigel DNP,CORPORATE BOND TRADER,SALESPERSON WOMEN'S [employer]ATS PENICILLIN G POTASSIUM hives and swelling Severe Active Radha Tyson Rec htzigel DNP,CORPORATE BOND TRADER,SALESPERSON WOMEN'S HATS Results Date Name Value Unit Range Flag Description Internal Other: Authorizatio n - OBS [email or web address] Yes Authoriza tion: Release of Information - Authorize [facility] - Payment and Healthcare Operations ROIAUTHOTHER Yes Authoriz ation: Release of Information - Authorize Others/Insurance - Payment and Healthcare Operations HIECONSENT Yes Consent To Release information to the Health Information Exchange (HIE) [email or web address] Yes Authorizat ion: Authorization for [facility] to leave messages, voicemail, send text messages, send emails AUTHRELHCARE Yes Authoriz ation: Release/Retrieval of Information to/from Healthcare Facilities, Pharmacy Benefit Payers and Providers [email or web address] Yes Authoriz ation: Notice of privacy practices AUTHBENEFIT Yes Authoriza tion: Assignment of Benefits and Payment Agreement Replaced Document: (P) HIV 1 /2 ANTIGEN/ANTIBODY,FOURTH GENERATION W/RFL, TICK B ... MARIANNA * U/L Angiotensin converting enzyme [Enzymatic activity/volume] in Serum or Plasma [id number] * U/mL Proteina se-3 antibody SSB * Sjogren's syndrome-B, extractable nuclear Ab, serum SSA * Sjogren's syndrome-A, extractable nuclear Ab, serum CRP * mg/dL C reactive pr otein [Mass/volume] in Serum or Plasma RHEUMOT FACT * [iU]/mL Rheumato id factor [Units/volume] in Serum or Plasma ANASCR IFA * ELIZABETH SCREEN , IFA BASOPHIL % 0.8 % N Basophils/ 100 leukocytes in Blood by Manual count EOSINOPHIL % 3.7 % N Eosinoph ils/100 leukocytes in Blood by Manual count MONOCYTE % 11.0 % N Monocytes/ 100 leukocytes in Blood by Automated count LYMPHS % 15.6 % N Lymphocytes/ 100 leukocytes in Blood by Automated count PMN % 68.9 % N Neutrophils/1 00 leukocytes in Blood by Automated count BASOPH COUNT 42 CELLS/UL 10*3/mm3 0-200 N Bas ophils [#/volume] in Blood by Manual count EOS COUNT 192 CELLS/UL 10*3/mm3 15-500 N eosin ophil count, blood MONOSCT AUTO 572 CELLS/UL 10*3/uL 200-950 N Mon ocytes [#/volume] in Blood by Automated count LYMPH COUNT 811 CELLS/UL 10*3/mm3 850-3900 L ly mphocyte count, blood NEUTRO COUNT 3583 CELLS/UL 10*3/mm3 2917-4221 N neutrophil count, blood MPV 10.0 fL 7.5-12.5 N Platelet moon n volume [Entitic volume] in Blood by Zulema PLATELETS 161 THOUSAND/UL 10*3/mm3 140-400 N Platelets [#/volume] in Blood by Automated count RDW 13.8 % 11.0-15.0 N Erythrocyte distribution width [Ratio] by Automated count MCHC 32.9 G/DL 32.0-36.0 N MCHC [Mass/ volume] by Automated count MCH 30.1 pg 27.0-33.0 N MCH [Entiti c mass] by Automated count MCV 91.5 fL 80.0-100. 0 N MCV [Entitic volume] by Automated count HCT 39.8 % 35.0-45.0 N Hematocrit [Volume Fraction] of Blood by Automated count HGB 13.1 g/dL 11.7-15.5 N Hemoglobin [Mass/volume] in Blood RBC 4.35 MILLION/UL 10*6/mm3 3.80-5.10 N Erythrocytes [#/volume] in Blood by Automated count WBC 5.2 THOUSAND/UL 10*3/mm3 3.8-10.8 N Leukocytes [#/volume] in Blood by Automated count ESR * mm/h Erythrocyte sedimentation rate by Westergren method E CHAF IGM * Ehrlichia chaffeensis IgM Ab [Presence] in Serum ECHAF IGG AB * Ehrlichi a Chaffeensis IgG AB LYME DIS AB * Borrelia burgdorferi.VlsE1+p epC10 Ab [Units/volume] in Serum by Immunoassay BABESMICIGM * Babesia m icroti IgM Ab [Titer] in Serum BABESMICIGG * Babesia m icroti IgG Ab [Titer] in Serum COMMENT#1 * COMMENT #1 PHAGOCYTOIGG * A PHAGOC YTOPHILUM AB, IGG HIV AB * HIV 2 gp125 A b [Presence] in Serum by Immunoblot Lab Report: (P) HIV 1/2 ANTI GEN/ANTIBODY,FOURTH GENERATION W/RFL, TICK B ... ELIZABETH PATTERN Nuclear, Dense Fine Speckled A ELIZABETH (antinuclear antibody) pattern, serum ELIZABETH TITER 2 1:160 H ELIZABETH TITER 2 Internal Other: Verbal Autho rization/Emergency Contact - OBS VERBAL_EMER Done Verbal authorization and emergency contact Replaced Document: (P) PROTE IN C ACTIVITY AND ANTIGEN, FACTOR V (LEIDEN) MUTATI ... B-12 * pg/mL Cobalamin (Vi tamin B12) [Mass/volume] in Serum or Plasma FOLATE * ng/mL Folate [Mass/volume] in Serum or Plasma HOMOCYSTEINE * umol/L homocyst eine, plasma, quantitative ANTICARD IGM * cardioli pin antibody, IgM CARDIOLIPIN * U anti-card iolipin antibody, serum ANTICARD IGA * cardioli pin antibody, IgA REVIEW * PATHOLOGIST R ZACK DDIMER * ug/mL D-dimer quantitative mcg/mL [id number] * GE use only - for [employer] import when terms are not otherwise specified PTT LA * PTT-LA LUPUS INHIB * LUPUS ANT ICOAGULANT (PT; PPP; QN; ) PTT P 30 s 23-32 N Partial Thromboplastin Time, Plasma METHYL MALON * nmol/L methylma lonic acid (MMA), serum FACTVIII INH * U anti-fac tor VIII PROTHROMBIN * % prothromb in (Factor II) activity PROT S AG T * % protein S antigen, total, plasma INTRP * Interpretatio n F V LEIDEN * FACTOR V, LEIDEN, MUTATION PROT C ACTIV * % Protein C activity Office Visit: Office Visit 6 M follow up fax MEDS REVIEW Done Documenta tion of current medications (procedure) Plan of Care Type Date Detail Appointment 09:30 AM [facility] [address], [address], Appointment 10:15 AM [facility] [address], [address], Appointment 11:20 AM [facility] [address], [address], Appointment 11:00 [place] [address], [address], App[facility]ment 11:45 [facility] [address], [address], Referral Other Referral Pending order Follow up Pending Order exclud ed from report: Pending order Follow up Pending order Follow up Pending order Follow up Pending order Vitamin D 25 Hyd paul Pending order MRI-Thoracic W/W O MS Protocol Pending order MRI-Cervical W/W O MS Protocol Pending order MRI-Brain W/WO M S Protocol Pending order MRI-Brain W/WO M S Protocol Pending order MRI-Cervical W/W O MS Protocol Pending order MRI-Thoracic W/W O MS Protocol Pending order Vitamin D 25 Hyd paul Pending order Vitamin B12 Pending order Vitamin D 25 Hyd paul Pending order Follow up PAOLA Pending order Patient Instruct ions Pending order Follow up with N eurologist or PAOLA Pending order MRI-Brain W/WO M S Protocol Pending order MRI-Cervical W/W O MS Protocol Pending order MRI-Thoracic W/W O MS Protocol Pending order Patient Instruct ions Pending order Patient Instruct ions Pending order Folate (Folic Ac id) Serum Pending order Homocysteine Pending order Methylmalonic Ac id Serum (MMA) Pending order Vitamin B12 Pending order Activated Protei n C Resistance (APCR) Pending order Anti Cardiolipin Ab - IgA/G/M Pending order Anti Thrombin II I (Factor III Profile) Pending order D-DIMER Qn Pending order Lupus Anticoagul ant Screen Pending order Peripheral Smear (Hematopathology Consult) Pending order Protein C Panel Pending order Protein S Panel Pending order PTT Activated Pending order Factor II Gene M utation - Prothrombin Pending order Factor V Leiden Mutation Pending order Factor VIII Anti gen Pending order MRI-Cervical W/W O MS Protocol Pending order MRI-Thoracic W/W O MS Protocol Pending order LP-Lumbar Punctu re Pending order AFB Culture & St ain CSF Pending order Cell Count & Dif f CSF Pending order Culture (include s Gram Stain) CSF Pending order Cytology (test f or malignant cells) CSF Pending order Glucose CSF Pending order Gram Stain CSF Pending order Lyme PCR CSF (B. burgdorferi) Pending order Multiple Scleros is Screen CSF w/Serum (lab appt needed) Pending order Total Protein CS F Pending order VDRL CSF Pending order C Reactive Prote in (CRP) Qn Pending order ESR (Sedimentati on Rate) Pending order Rheumatoid (RA) Factor Pending order Sjogren's Ab - S SA/SSB (ANTI-Ro/ANTI-La) Pending order ELIZABETH Pending order Angiotensin Conv erting Enzyme (MARIANNA) Pending order HIV 1/2 Ab Scree chinedu Pending order Sjogren's Ab - S SA/SSB (ANTI-Ro/ANTI-La) Pending order ANCA Pending order CBC with Diff/Pl atelet Pending order Homocysteine Pending order Other Lab Pending order Other Order Pending order Instructions for Staff Pending order Follow up with N eurologist or PAOLA Pending order MRA-Neck W/WO Pending order MRI-Brain W/WO M S Protocol Pending order Lipid Panel with LDL/HDL Ratio - fasting after midnight Pending order PT & PTT Pending order Follow up as nee ded Procedures Code Procedure Name Date Entry Date ORDERS Follow up ORDERS Follow up PAOLA ORDERS Patient Instructions CPT-G2211 Complex e/m visit add on 202 10/26/10 ORDERS Vitamin D 25 Hydroxy ORDERS Vitamin B12 ORDERS Follow up with Neurologist or PAOLA [id number] MRI-Brain W/WO MS Protocol 2 [id number] MRI-Thoracic W/WO MS Protocol [id number] MRI-Cervical W/WO MS Protocol CPT-Y3163T ProHance Gadolinium- based MR Contrast - 20 ml vial CPT-72634 MRI Brain W/WO CPT-51545 MRI Cervical W/WO CPT-44570 MRI Thoracic W/WO ORDERS Patient Instructions [id number] Documentation of current medicatio ns ORDERS Other Referral ORDERS Activated Protein C Resistance (APCR) 09/23/28 ORDERS Anti Thrombin III (Factor III Profile) 20 11/11/28 ORDERS Lupus Anticoagulant Screen 2 ORDERS Peripheral Smear (Hematopathology Consult ) ORDERS Protein C Panel ORDERS Protein S Panel ORDERS Factor VIII Antigen ORDERS Folate (Folic Acid) Serum 11/11/28 ORDERS Homocysteine ORDERS Methylmalonic Acid Serum (MMA) ORDERS Vitamin B12 ORDERS Anti Cardiolipin Ab - IgA/G/M ORDERS D-DIMER Qn ORDERS PTT Activated ORDERS Factor II Gene Mutation - Prothrombin 09/23/28 ORDERS Factor V Leiden Mutation 09/23/28 [id number] MRI-Thoracic W/WO MS Protocol [id number] MRI-Cervical W/WO MS Protocol CPT-S9221N ProHance Gadolinium- based MR Contrast - 20 ml vial CPT-30229 MRI Cervical W/WO CPT-77351 MRI Thoracic W/WO ORDERS C Reactive Protein (CRP) Qn ORDERS ESR (Sedimentation Rate) 09/23/07 ORDERS Rheumatoid (RA) Factor 09/26 ORDERS Sjogren's Ab - SSA/SSB (ANTI-Ro/ANTI-La) ORDERS ELIZABETH ORDERS Angiotensin Converting Enzyme (MARIANNA) 09/26 ORDERS ANCA ORDERS CBC with Diff/Platelet 09/26 ORDERS Homocysteine [id number] LP-Lumbar Puncture 8 ORDERS AFB Culture & Stain CSF 2023 ORDERS Cell Count & Diff CSF 08 ORDERS Culture (includes Gram Stain) CSF ORDERS Cytology (test for malignant cells) CSF 2 ORDERS Glucose CSF ORDERS Gram Stain CSF ORDERS Lyme PCR CSF (B. burgdorferi) ORDERS Multiple Sclerosis S creen CSF w/Serum (lab appt needed) ORDERS Total Protein CSF ORDERS VDRL CSF ORDERS HIV 1/2 Ab Screening ORDERS Sjogren's Ab - SSA/SSB (ANTI-Ro/ANTI-La) ORDERS Other Lab ORDERS Other Order ORDERS Instructions for Staff 09/26 ORDERS Follow up with Neurologist or PAOLA [id number] MRI-Brain W/WO MS Protocol 2 [id number] MRA-Neck W/WO CPT-78229 MRI Brain W/WO CPT-E7199M MultiHance Gadoliniu m-based MR Contrast - 15 ml vial CPT-01035 MRA Neck W/WO ORDERS Follow up as needed [id number] Documentation of current medicatio ns ORDERS Lipid Panel with LDL /HDL Ratio - fasting after midnight ORDERS PT & PTT Vital Signs Date Name Value Unit Description Weight Measured 215 [lb_av] weight E& M Weight Measured 215 [lb_av] weight E& M Heart Rate 70 /min pulse rate Immunizations No information available. Advance Directives No information available.
--- OUTSIDE RECORDS SUMMARY | 2025-04-20 06:26 | XMS_ITS | Clinical Summary ---
Author Organization [facility] Address [address] [place] [address] Care Team Providers Care Eye Surgeon Name Role Phone Melissa Gillette MD Primary Care Provider [phone] Allergies Active Allergy Reactions Criticality Noted Date Comments Penicillins 10/14/2007 Sulfa (Sulfonamide Antibiotics) 09/20 Medications ATENOLOL 100 MG TABIndications:Un specified essential hypertension TAKE ONE TABLET BY MOUTH EVERY DAY 30 Each 0 02/27/2009 Active atorvastatin (LIPITOR) 40 mg tablet Take 40 mg by mouth at bedtime. 10/21/2023 Active azithromycin (ZITHROMAX) 250 mg tablet One tablet po twice weekly 07/08/2023 Active clopidogreL (PLAVIX) 75 mg tablet Take 75 mg by mouth once daily. 10/21/2023 Active Sodium Fluoride 1.1 % pste 09/30/2023 Active metFORMIN (GLUCOPHAGE) 1,000 mg tablet Take 1,000 mg by mouth two times daily with meals. 11/12/2023 Active valsartan (DIOVAN) 80 mg tablet Take 80 mg by mouth once daily. 11/29/2023 Active Active Problems Problem Noted Date Diagnosed Date DM (diabetes mellitus) 01/04/2024 Hyperlipidemia 01/04/2024 Unspecified essential hypertension 11/06/2007 Immunizations Immunization Administration Dates Next Due Tdap 11/02/2007 Family History Medical History Relation Name Comments Hypertension Brother Hypertension Father Heart Disease Maternal Grandmother [place] at 79 Hyperlipidemia Mother Thyroid Disease Sister Relation Name Status Comments Brother Father Maternal Grandmother Mother Sister Social History Tobacco Use Types Packs/Day Years Used Date Smoking Tobacco: Never Smokeless Tobacco: Never Tobacco Cessation:Counseling Given: Not Answered Alcohol Use Standard Drinks/Week Comments Yes 0 (1 standard drink = 0.6 oz pur e alcohol) about once per month Social Connections Answer Date Recorded Frequency of Communication with Friends and Fami ly Not on file 01/04/2024 Comments No Sex and Gender Information Value Date Recorded Sex Assigned at Not on file Legal Sex Female 6:14 AM FAMILY PROGRAM SPECIALIST Gender Identity Not on file Sexual Orientation Not on file 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 file Not on file Not on file Obstetrics History Last Filed Vital Signs Vital Sign Reading Time Taken Comments Blood Pressure 120/76 01/04/2024 8:49 AM CDT Pulse 58 01/04/2024 8:49 AM CDT Temperature 36.7 C (98 F) 10/08/2023 1:00 PM CDT Respiratory Rate 18 10/08/2023 1:00 PM CDT Oxygen Saturation 98% 01/04/2024 8:49 AM CDT Inhaled Oxygen Concentration - - Weight 96.2 kg (212 lb) 01/04/2024 8:49 AM CDT Height - - Body Mass Index - - Plan of Treatment Health Maintenance Due Date Last Done Comments Depression screening for age 12+ 1969 BMI (ht and wt on same day) for age 18+ 1975 Hepatitis C screening for ag e 18-79 1975 Pneumococcal series for age 50+ (1 of 2 - PCV) 1976 Colonoscopy through age 75 2002 Mammogram for age 45-75 2002 Zoster (shingles) series for age 50+ (1 of 2) 2007 Lipids for age 45-75 11/10/2012 11/11/2007 Tetanus booster 11/01/2017 11/02/2007 DEXA/DXA scan for age 65+ 2022 Medicare Wellness for age 65+ 2022 Influenza Vaccine (#1) 2025 RSV vaccine for adults or (1 - 1-dose 75+ series) 2032 Hepatitis B series for 19+ Aged Out N o longer eligible based on patient's age to complete this topic Procedures Procedure Name Priority Date/Time Associated Diagnosis Comments LIPID PANEL Routine 11/11/2007 8:09 AM CDT Hypertension from Last 3 Months or Most Recently Relevant to Health Maintenance Results * (ABNORMAL) LIPID PANEL (11/11/2007 8:09 AM CDT) CHOLESTEROL,TOTAL 172 110 - 199 mg/dL [facility] TRIGLYCERIDES 112 <150 mg/dL [facility] HDL CHOLESTEROL 37(L) >40 mg/dL [facility] CHOL/HDL RATIO 4.65(H) <4.51 [facility] LDL CHOLESTEROL 113 <131 mg/dL [facility] PATIENT STATUS Fasting [facility] Blood specimen (specimen) BLOOD SPECIMEN / Unknown 11/11/2007 8:09 AM CDT 11/11/2007 8:05 AM CDT us Ruben Baca MD CHEMISTRY Final Re sult [facility] [address] [place] [address] from Last 3 Months or Most Recently Relevant to Health Maintenance Insurance [employer] CHOICE PPO MR MEDICARE PART A HB ONLY Care Teams Eye Surgeon Relationship Specialty Start Date End Date Melissa Gillette MD [address] [place] [id number] PCP - General Internal Medicine 10/07/23
--- NOTE | 2025-04-20 06:51 | CRLHL7_ITS ---
For Patients: As a result of the Century Cures Act, medical imaging exams and procedure reports are released immediately into your electronic medical record. You may view this report before your referring provider. If you have questions, please contact your health care provider. INDICATION: Seizure. COMPARISON: None. TECHNIQUE: CT of the brain / head without intravenous contrast. Multiplanar axial, coronal, and sagittal reformats were reconstructed. FINDINGS: No intracranial hemorrhage. Parenchymal volume is well preserved for age. No acute or subacute cortically based infarct. There are couple of small lacunar infarcts around the anterior horn of the left lateral ventricle. No mass or mass effect. Normal ventricles. No skull fractures. No worrisome focal bone lesion. Mild frontal calvarial hyperostosis. IMPRESSION: Very mild white matter disease, usually related to chronic small vessel disease. No acute findings. Please note that all CT scans at this facility use dose modulation, iterative reconstruction, and/or weight-based dosing when appropriate to reduce radiation dose to as low as reasonably achievable. Dictated by Shweta Manriquez MD @ 04/20/2025 7:20:30 AM (Electronically Signed)
--- OUTSIDE RECORDS SUMMARY | 2025-04-20 06:58 | XMS_ITS | Clinical Summary ---
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 1511434 (SNOMED CT) 01/23 Active 01/23 Fran Humphrey MD Demyelinating disease of central nervous system ELIZABETH positive 202835613 (SNOMED CT) 11/16 Active 11/16 Radha Paula DNP,SIDE PULLER,CN P Raised antinuclear antibody Abnormal brain MRI 726878502 (SNOMED CT) 08/16 Active 08/16 Fran Humphrey MD Magnetic resonance imaging of brain abnormal Migraine aura without headache 810723136 (SNOMED CT) 08/16 Active 08/16 Fran Humphrey MD Migraine aura without headache Memory deficit or lapses 168323974 (SNOMED CT) 08/16 Active 08/16 Fran Humphrey MD Memory impairment Word finding difficulty [id number] (SNOMED CT) 08/16 Active 08/16 Fran Humphrey MD Word finding difficulty Medications Medication Instructions Start Date Stop Date Generic Name NDC Provider VALSARTAN 80 MG TABS 01/29 valsartan [id number] Radha Paula DNP,SIDE PULLER,TENNIS DIRECTOR VALSARTAN-HYDRO CHLOROTHIAZIDE 80-12.5 MG TABS valsartan-hydroc h lorothiazide [id number] Radha Tyson Rechtzigel DNP,SIDE PULLER,TENNIS DIRECTOR GLATIRAMER ACETATE 40 MG/ML SOSY 40 mg subcu 3 times per week at least 48 hours apart 12/25 glatiramer [id number] Radha Tyson Rechtzigel DNP,SIDE PULLER,TENNIS DIRECTOR GLATIRAMER ACETATE 40 MG/ML SOSY Inject 1 syringe subcutaneously three times a week at least 48 hours apart glatiramer 02945085396 Radha Tyson Rechtzigel DNP,SIDE PULLER,TENNIS DIRECTOR vitamin b12 vitamin b12 Radha Marbella Rechtzigel DNP,SIDE PULLER,TENNIS DIRECTOR GLATIRAMER ACETATE 40 MG/ML SOSY 40 mg subcu 3 times per week at least 48 hours apart 12/25 glatiramer 35385268146 Fran Humphrey MD ASPIRIN 325 MG TABS 11/07 aspirin 05036654311 Radha Tyson Rechtzigel DNP,SIDE PULLER,TENNIS DIRECTOR AZITHROMYCIN 250 MG TABS azithromycin 64319470916 Fran Cline MD KETOCONAZOLE 2 % CREA ketoconazole 82562132967 Fran flores MD METFORMIN HCL 1000 MG TABS metformin 25254551395 Fran flores MD ATORVASTATIN CALCIUM 40 MG TABS atorvastatin 37196967979 Fran flores MD CLOPIDOGREL BISULFATE 75 MG TABS clopidogrel 93592630031 Fran Humphrey MD VALSARTAN 80 MG TABS 01/29 valsartan 04112216165 Fran Humphrey MD ATENOLOL 100 MG TABS atenolol 55634075408 Fran Humphrey MD ASPIRIN 325 MG TABS 11/07 aspirin 01557562306 Fran Humphrey MD MULTI-VITAMIN TABS multivitamin 97400457504 Fran flores MD RA FISH OIL 1000 MG CAPS docosahexaenoic acid-epa 97585256472 Fran Humphrey MD Medications Administered No information available. Allergies, Adverse Reactions, Alerts Allergy Name Reaction Description Start Date Severity Status Provider BACTRIM hives and swelling Critical No Eliseo kenn Active Radha Tyson Rechtzigel DNP,SIDE PULLER,TENNIS DIRECTOR SULFAMETHOXAZOLE- TRIMETHOPRIM hives and swelling Critical Active Radha Tyson Rec htzigel DNP,SIDE PULLER,TENNIS DIRECTOR BACTRIM hives and swelling Critical No Eliseo kenn Active Radha Tyson Rechtzigel DNP,SIDE PULLER,TENNIS DIRECTOR PENICILLIN G POTASSIUM hives and swelling Severe Active Radha Tyson Rec htzigel DNP,SIDE PULLER,TENNIS DIRECTOR Results Date Name Value Unit Range Flag [...] enzyme [Enzymatic activity/volume] in Serum or Plasma [id number] * U/mL Proteina se-3 antibody SSB * [...] count, blood NEUTRO COUNT 3583 CELLS/UL 10*3/mm3 9699-7056 N neutrophil count, blood MPV 10.0 fL [...] Care Type Date Detail Appointment 09:30 AM [facility] [address], [address], Appointment 10:15 AM [address], [address], Appointment 11:20 AM [facility] [address], [address], Appointment 11:00 [place], [address], [facility] 11:45 [facility] [address], [address], Referral Other Referral Pending order Follow up [...] ORDERS Follow up with Neurologist or PAOLA [id number] MRI-Brain W/WO MS Protocol 2 [id number] MRI-Thoracic W/WO MS Protocol [id number] MRI-Cervical W/WO MS Protocol CPT-E4192R ProHance Gadolinium- based MR Contrast - 20 ml vial CPT-48952 MRI Brain W/WO CPT-98681 MRI Cervical W/WO CPT-66739 MRI Thoracic W/WO ORDERS Patient Instructions [id number] Documentation of current medicatio ns ORDERS Other [...] 09/23/28 ORDERS Factor V Leiden Mutation 09/23/28 [id number] MRI-Thoracic W/WO MS Protocol [id number] MRI-Cervical W/WO MS Protocol CPT-A6880M ProHance Gadolinium- based MR Contrast - 20 ml vial CPT-16612 MRI Cervical W/WO CPT-04328 MRI Thoracic W/WO ORDERS C Reactive Protein (CRP) Qn ORDERS ESR (Sedimentation Rate) 09/23/07 ORDERS Rheumatoid (RA) Factor 09/26 ORDERS Sjogren's Ab - SSA/SSB (ANTI-Ro/ANTI-La) ORDERS ELIZABETH ORDERS Angiotensin Converting Enzyme (MARIANNA) 09/26 ORDERS ANCA ORDERS CBC with Diff/Platelet 09/26 ORDERS Homocysteine [id number] LP-Lumbar Puncture 8 ORDERS AFB Culture & [...] ORDERS Follow up with Neurologist or [facility] [id number] MRI-Brain W/WO MS Protocol 2 [id number] MRA-Neck W/WO CPT-28394 MRI Brain W/WO CPT-G6592G MultiHance Gadoliniu m-based MR Contrast - 15 ml vial CPT-84706 MRA Neck W/WO ORDERS Follow up as needed [id number] Documentation of current medicatio ns ORDERS Lipid Panel with LDL /HDL Ratio - fasting after midnight ORDERS PT & PTT Vital Signs Date Name Value Unit Description Weight Measured 215 [lb_av] weight E& M Weight Measured 215 [lb_av] weight E& M Heart Rate 70 /min pulse rate Immunizations No information available. Advance Directives No information available.
--- NOTE | 2025-04-20 07:08 | ED.SEIZURE ---
HPI - Seizure General Date Seen: 04/20/25 <Kaushal Bess MD - Last Filed: 04/23/25 17:00> Chief Complaint: Seizure <Kaushal Bess MD - Last Filed: 04/23/25 17:00> Stated Complaint: Seizure <Kaushal Bess MD - Last Filed: 04/23/25 17:00> Time Seen by Provider: 04/20/25 06:37 <Kaushal Bess MD - Last Filed: 04/23/25 17:00> Source: patient, family and EMS <Kaushal Bess MD - Last Filed: 04/23/25 17:00> Mode of arrival: EMS <Kaushal Bess MD - Last Filed: 04/23/25 17:00> Limitations: no limitations <Kaushal Bess MD - Last Filed: 04/23/25 17:00> History of Present Illness HPI Narrative: Patient is a 70-year-old female with a history of TIA and multiple sclerosis. She is brought in by EMS after having a witnessed seizure. She has never had a seizure before. Her TIA was a couple of years ago and presented with aphasia that rapidly resolved. It was during the evaluation for her TIA that some demyelination was noted. They did not initially labeled this as multiple sclerosis but she was started on Copaxone. She sees [facility] every six months. She got up to use the bathroom at 4:00 a.m. and went back to bed. Her did not wake up at that time. Later he awoke to his bed shaking and his having a seizure. They called 911 and their daughter who lives downstairs and is an EMT came upstairs. They moved the patient from the bed to the ground. Her believes the seizure when on for 10 minutes. When she awoke she had some difficulty answering questions but was not excessively sleepy. There is no incontinence. No tongue biting. Her mental status has since cleared. No recent illness. No recent head trauma. I do not believe that she has ever had an EEG done. She is a type 2 diabetic taking only metformin. She is on valsartan/hydrochlorothiazide and atenolol for hypertension. She takes atorvastatin for hyperlipidemia. She is anticoagulated with Plavix. She has no memory of the event and woke with people standing over her. <Kaushal Bess MD - Last Filed: 04/23/25 17:00> Seizure History: No <Kaushal Bess MD - Last Filed: 04/23/25 17:00> Place: home <Kaushal Bess MD - Last Filed: 04/23/25 17:00> Related Data Home Medications: Home Medications ?Medication ?Instructions ?Recorded ?Confirmed multivitamin 1 tab PO DAILY 02/10/22 03/01/25 omega-3 fatty acids 500 mg capsule 500 mg PO DAILY 02/10/22 03/01/25 metronidazole 0.75 % topical cream 1 applic topical BID PRN 03/09/23 03/01/25 glatiramer 40 mg/mL subcutaneous 40 mg subcut .3 x weekly 02/28/24 03/01/25 syringe cholecalciferol (vitamin D3) 1,000 unit PO DAILY 03/01/25 03/01/25 Previous Rx's ?Medication ?Instructions ?Recorded ketoconazole 2 % topical cream 1 applic topical DAILY PRN rash 08/28/24 #60 grams atenolol 100 mg tablet 100 mg PO DAILY #90 tabs 10/23/24 atorvastatin 40 mg tablet 40 mg PO HS #90 tabs 10/23/24 azithromycin 250 mg tablet 250 mg PO .2 x weekly PRN rash #36 10/26/24 tabs metformin 1,000 mg tablet 1,000 mg PO BIDWMEAL #180 tabs 11/07/24 valsartan 80 1 tab PO QDAY #90 tabs 12/26/24 mg-hydrochlorothiazide 12.5 mg tablet clopidogrel 75 mg tablet 75 mg PO DAILY #90 tabs 04/06/25 levetiracetam 750 mg tablet 750 mg PO BID #60 tabs 04/20/25 (Keppra) <Kaushal Bess MD - Last Filed: 04/23/25 17:00> Allergies/Adverse Reactions: Allergies Allergy/AdvReac Type Severity Reaction Status Date / Time Sulfa (Sulfonamide Allergy Severe Verified 04/20/25 06:36 Antibiotics) penicillin V Allergy Intermediate Fever, Verified 04/20/25 06:36 hives <Kaushal Bess MD - Last Filed: 04/23/25 17:00> Review of Systems Narrative: Review of systems is outlined above otherwise noted to be negative. <Kaushal Bess MD - Last Filed: 04/23/25 17:00> [facility] Surgical History: Surgical History History of lump of right breast ?Z87.898 - Personal history of other specified conditions (ICD-10) History of tubal ligation (03/29/09) ?Z98.51 - Tubal ligation status (ICD-10) History of lumpectomy of left breast (03/29/09) ?Z98.890 - Other specified postprocedural states (ICD-10) History of section (03/29/09) ?Z98.891 - History of uterine scar from previous surgery (ICD-10) <Kaushal Bess MD - Last Filed: 04/23/25 17:00> Social History: Social History What is your current living situation?: I presently have a place to live Problems where you live: no known problems Problems where you live details: n/a In the past 12 months, utilities in danger of being shut off: no In past 12 months, lack of transportation kept you from medical appts, meetings, work, or getting things needed for daily living: no In the past 12 mos, have been you worried that your food would run out before you had money to buy more?: never true In the past 12 mos, the food you bought just didn't last and you didn't have money to buy more?: never true Smoking Status: Former smoker How often do you have a drink containing alcohol: 2-3 times a week How many standard drinks containing alcohol do you have on a typical day: 1 or 2 How often do you have six or more drinks on one occasion: Never AUDIT-C Alcohol total score: 3 Non-prescribed substance use: denies use Caffeine: Yes (2/3 cups of coffee) How often does anyone, including family, friends and others, physically hurt you: never How often does anyone, including family, friends and others, insult or talk down to you: never How often does anyone, including family, friends and others, threaten you with harm: never How often does anyone, including family, friends and others, scream or curse at you: never service: No <Kaushal Bess MD - Last Filed: 04/23/25 17:00> Exam Narrative: Exam Narrative: Vitals noted. HEENT: Conjunctiva clear. Tympanic membranes are pearly white bilaterally. Posterior pharynx is clear without erythema or exudate. Neck is supple without adenopathy, thyromegaly, carotid bruit. Lungs: Clear to auscultation in all meyer. No wheezes, rales, rhonchi. Heart: Regular rate and rhythm without murmur. Abdomen: Soft and nontender. No guarding, rigidity, rebound. Bowel sounds are normal. No palpable masses. Extremities: No cyanosis or edema. Good distal pulses. Skin: No abnormalities noted of the exposed skin. Neurologic: Awake, alert, fully oriented. Neurologic exam is nonfocal. She moves all extremities normally. No motor or sensory deficit. Cranial nerves are intact. <Kaushal Bess MD - Last Filed: 04/23/25 17:00> Const: Vital Signs, click to edit/add: Vital Signs - 24 hr 04/20/25 06:32 04/20/25 06:53 04/20/25 06:54 Temperature 98.3 F Pulse Rate 83 82 Pulse Rate [Pulse Oximeter] 92 Respiratory Rate 16 Blood Pressure 151/84 H Blood Pressure [Ri ght Upper Arm] 145/91 H Pulse Oximetry 98 100 99 Oxygen Delivery Me thod Room Air 04/20/25 07:07 04/20/25 07:15 04/20/25 07:31 Temperature Pulse Rate 84 83 80 Pulse Rate [Pulse Oximeter] Respiratory Rate Blood Pressure Blood Pressure [Ri ght Upper Arm] Pulse Oximetry 99 99 99 Oxygen Delivery Me thod 04/20/25 07:45 04/20/25 08:00 04/20/25 08:15 Temperature Pulse Rate 79 77 75 Pulse Rate [Pulse Oximeter] Respiratory Rate Blood Pressure Blood Pressure [Ri ght Upper Arm] Pulse Oximetry 99 96 95 Oxygen Delivery Me thod 04/20/25 08:30 04/20/25 08:45 04/20/25 11:40 Temperature Pulse Rate 81 74 69 Pulse Rate [Pulse Oximeter] Respiratory Rate Blood Pressure Blood Pressure [Ri ght Upper Arm] Pulse Oximetry 98 98 94 Oxygen Delivery Me thod 04/20/25 11:42 04/20/25 11:45 04/20/25 12:00 Temperature Pulse Rate 69 70 68 Pulse Rate [Pulse Oximeter] Respiratory Rate Blood Pressure 117/56 L Blood Pressure [Ri ght Upper Arm] Pulse Oximetry 97 94 97 Oxygen Delivery Me thod 04/20/25 12:02 04/20/25 12:15 04/20/25 12:21 Temperature Pulse Rate 68 66 69 Pulse Rate [Pulse Oximeter] Respiratory Rate Blood Pressure 113/63 137/75 Blood Pressure [Ri ght Upper Arm] Pulse Oximetry 98 94 98 Oxygen Delivery Me thod 04/20/25 12:30 Temperature Pulse Rate 69 Pulse Rate [Pulse Oximeter] Respiratory Rate Blood Pressure Blood Pressure [Ri ght Upper Arm] Pulse Oximetry 96 Oxygen Delivery Me thod <Kaushal Bess MD - Last Filed: 04/23/25 17:00> Vital Signs, click to edit/add: Vital Signs - 24 hr 04/20/25 06:32 04/20/25 06:53 04/20/25 06:54 Temperature 98.3 F Pulse Rate 83 82 Pulse Rate [Pulse Oximeter] 92 Respiratory Rate 16 Blood Pressure 151/84 H Blood Pressure [Ri ght Upper Arm] 145/91 H Pulse Oximetry 98 100 99 Oxygen Delivery Me thod Room Air 04/20/25 07:07 04/20/25 07:15 04/20/25 07:31 Temperature Pulse Rate 84 83 80 Pulse Rate [Pulse Oximeter] Respiratory Rate Blood Pressure Blood Pressure [Ri ght Upper Arm] Pulse Oximetry 99 99 99 Oxygen Delivery Me thod 04/20/25 07:45 04/20/25 08:00 04/20/25 08:15 Temperature Pulse Rate 79 77 75 Pulse Rate [Pulse Oximeter] Respiratory Rate Blood Pressure Blood Pressure [Ri ght Upper Arm] Pulse Oximetry 99 96 95 Oxygen Delivery Me thod 04/20/25 08:30 04/20/25 08:45 04/20/25 11:40 Temperature Pulse Rate 81 74 69 Pulse Rate [Pulse Oximeter] Respiratory Rate Blood Pressure Blood Pressure [Ri ght Upper Arm] Pulse Oximetry 98 98 94 Oxygen Delivery Me thod 04/20/25 11:42 04/20/25 11:45 04/20/25 12:00 Temperature Pulse Rate 69 70 68 Pulse Rate [Pulse Oximeter] Respiratory Rate Blood Pressure 117/56 L Blood Pressure [Ri ght Upper Arm] Pulse Oximetry 97 94 97 Oxygen Delivery Me thod 04/20/25 12:02 04/20/25 12:15 04/20/25 12:21 Temperature Pulse Rate 68 66 69 Pulse Rate [Pulse Oximeter] Respiratory Rate Blood Pressure 113/63 137/75 Blood Pressure [Ri ght Upper Arm] Pulse Oximetry 98 94 98 Oxygen Delivery Me thod 04/20/25 12:30 Temperature Pulse Rate 69 Pulse Rate [Pulse Oximeter] Respiratory Rate Blood Pressure Blood Pressure [Ri ght Upper Arm] Pulse Oximetry 96 Oxygen Delivery Me thod <Diaz Martinez MD - Last Filed: 04/20/25 13:31> Course Course ED Course: Patient seen and examined. CT of the head without contrast is unremarkable. CBC, BMP, TSH, lactate, LFTs are ordered. She has a headache and is given Tylenol 1000 mg. Her care is turnd over to Dr Martinez at change of shift. <Kaushal Bess MD - Last Filed: 04/23/25 17:00> Reevaluation(s) Reevaluation #1: Patient remains stable. I did speak with Neurology. They do recommend MRI with without as well as 2 g of IV Keppra. <Diaz Martinez MD - Last Filed: 04/20/25 13:31> Vital Signs Vital signs: Initial Vital Signs Temperature 98.3 F 04/20/25 06:32 Temperature Source Temporal Artery Scan 04/20/25 06:32 Pulse Rate 92 04/20/25 06:32 Respiratory Rate 16 04/20/25 06:32 Blood Pressure 145/91 H 04/20/25 06:32 Blood Pressure Mean 109 H 04/20/25 06:32 Blood Pressure Position Supine 04/20/25 06:32 Pulse Oximetry 98 04/20/25 06:32 Oxygen Delivery Method Room Air 04/20/25 06:32 Vital Signs Temperature 98.3 F 04/20/25 06:32 Pulse Rate 92 04/20/25 06:32 Respiratory Rate 16 04/20/25 06:32 Blood Pressure 145/91 H 04/20/25 06:32 Pulse Oximetry 98 04/20/25 06:32 Oxygen Delivery Method Room Air 04/20/25 06:32 Temperature 98.3 F 04/20/25 06:32 Pulse Rate 69 04/20/25 12:30 Respiratory Rate 16 04/20/25 06:32 Blood Pressure 137/75 04/20/25 12:21 Pulse Oximetry 96 04/20/25 12:30 Oxygen Delivery Method Room Air 04/20/25 06:32 <Kaushal Bess MD - Last Filed: 04/23/25 17:00> Initial Vital Signs Temperature 98.3 F 04/20/25 06:32 Temperature Source Temporal Artery Scan 04/20/25 06:32 Pulse Rate 92 04/20/25 06:32 Respiratory Rate 16 04/20/25 06:32 Blood Pressure 145/91 H 04/20/25 06:32 Blood Pressure Mean 109 H 04/20/25 06:32 Blood Pressure Position Supine 04/20/25 06:32 Pulse Oximetry 98 04/20/25 06:32 Oxygen Delivery Method Room Air 04/20/25 06:32 Vital Signs Temperature 98.3 F 04/20/25 06:32 Pulse Rate 92 04/20/25 06:32 Respiratory Rate 16 04/20/25 06:32 Blood Pressure 145/91 H 04/20/25 06:32 Pulse Oximetry 98 04/20/25 06:32 Oxygen Delivery Method Room Air 04/20/25 06:32 Temperature 98.3 F 04/20/25 06:32 Pulse Rate 69 04/20/25 12:30 Respiratory Rate 16 04/20/25 06:32 Blood Pressure 137/75 04/20/25 12:21 Pulse Oximetry 96 04/20/25 12:30 Oxygen Delivery Method Room Air 04/20/25 06:32 <Diaz Martinez MD - Last Filed: 04/20/25 13:31> Medications Administered Medications: Discontinued Medications Generic Name Dose Route Start Last Admin Trade Name Bebeto PRN Reason Stop Dose Admin Acetaminophen 1,000 mg 04/20/25 07:18 04/20/25 07:26 Acetaminophen 500 Mg Tablet PO 04/20/25 07:19 1,000 mg ONCE ONE Administration Levetiracetam/Sodium Chloride 2,000 mg 04/20/25 09:00 10/31/25 09:05 Levetiracetam 1,000 Mg/100 Ml Infusion IVPB 04/20/25 09:01 2,000 mg ONCE ONE Administration <Kaushal Bess MD - Last Filed: 04/23/25 17:00> Discontinued Medications Generic Name Dose Route Start Last Admin Trade Name Bebeto PRN Reason Stop Dose Admin Acetaminophen 1,000 mg 04/20/25 07:18 04/20/25 07:26 Acetaminophen 500 Mg Tablet PO 04/20/25 07:19 1,000 mg ONCE ONE Administration Levetiracetam/Sodium Chloride 2,000 mg 04/20/25 09:00 04/20/25 09:05 Levetiracetam 1,000 Mg/100 Ml Infusion IVPB 04/20/25 09:01 2,000 mg ONCE ONE Administration <Diaz Martinez MD - Last Filed: 04/20/25 13:31> MDM - Seizure MDM Narrative Medical decision making narrative: Patient is a 70-year-old woman who had her 1st seizure this morning while sleeping. Workup is largely unremarkable and I did speak with Neurology. Neurology recommended 2 g of Keppra I a BE which was given. We were able do a MRI in addition to her CT scan. MRI showed some chronic lacunar infarcts but no acute abnormalities. Patient was recently diagnosed with multiple sclerosis. She does have an outpatient follow-up appointment with her neurologist had and consulting Neurology today asked me to start her on Keppra 750 mg twice daily and to continue current medications. No driving. <Diaz Martinez MD - Last Filed: 04/20/25 13:31> Lab Data Labs: Lab Results 04/20/25 Range/Units 07:40 WBC 5.96 (4.50-11.00) K/uL RBC 4.27 (4.00-5.20) m/uL Hgb 12.8 (12.0-16.0) gm/dL Hct 37.1 (33.0-51.0) % MCV 87 (80-100) fL MCH 30 (26-34) pg MCHC 35 (32-36) gm/dL RDW Coeff of Alyson 13.1 (11.5-15.5) % Plt Count 130 L (140-440) K/uL Neut % (Auto) 77.3 H (42.0-72.0) % Lymph % (Auto) 11.7 L (20-44) % Perry % (Auto) 7.2 (0.0-11.0) % Eos % (Auto) 2.5 (0.0-7.0) % Baso % (Auto) 0.3 (0.0-3.0) % Neut # (Auto) 4.60 (1.7-7.0) K/uL Lymph # (Auto) 0.70 L (0.90-2.90) K/uL Perry # (Auto) 0.40 (0.00-0.90) K/UL Eos # (Auto) 0.15 (0.00-0.50) K/uL Baso # (Auto) 0.02 (0.00-0.30) K/uL Abs Immat Gran (auto) 0.06 (0.00-0.30) K/uL Imm/Tot Granulo (auto) 1.0 % Diff Slide Review Acceptable Review (Acceptable) Sodium 138 (135-149) mmol/L Potassium 3.8 (3.6-5.1) mmol/L Chloride 105 (96-114) mmol/L Carbon Dioxide 24 (20-32) mmol/L Anion Gap 9 (7-15) mEq/L BUN 23 (7-30) mg/dL Creatinine 0.8 (0.5-1.5) mg/dL Estimated Creat Clear 48.45 Estimated GFR 80 ml/min Glucose 134 H (60-115) mg/dL Lactate 3.4 H (0.5-1.9) mmol/L Calcium 9.2 (8.4-10.6) mg/dL Total Bilirubin 0.8 (0.1-1.5) mg/dL Direct Bilirubin 0.3 (0.0-0.5) mg/dL AST 33 (12-35) U/L ALT 23 (4-35) U/L Alkaline Phosphatase 81 (40-150) U/L Total Protein 6.7 (6.0-8.3) g/dL Albumin 4.3 (3.3-5.0) g/dL TSH 3.240 (0.270-4.20) uIU/mL <Kaushal Bess MD - Last Filed: 04/23/25 17:00> Lab Results 04/20/25 Range/Units 07:40 WBC 5.96 (4.50-11.00) K/uL RBC 4.27 (4.00-5.20) m/uL Hgb 12.8 (12.0-16.0) gm/dL Hct 37.1 (33.0-51.0) % MCV 87 (80-100) fL MCH 30 (26-34) pg MCHC 35 (32-36) gm/dL RDW Coeff of Alyson 13.1 (11.5-15.5) % Plt Count 130 L (140-440) K/uL Neut % (Auto) 77.3 H (42.0-72.0) % Lymph % (Auto) 11.7 L (20-44) % Perry % (Auto) 7.2 (0.0-11.0) % Eos % (Auto) 2.5 (0.0-7.0) % Baso % (Auto) 0.3 (0.0-3.0) % Neut # (Auto) 4.60 (1.7-7.0) K/uL Lymph # (Auto) 0.70 L (0.90-2.90) K/uL Perry # (Auto) 0.40 (0.00-0.90) K/UL Eos # (Auto) 0.15 (0.00-0.50) K/uL Baso # (Auto) 0.02 (0.00-0.30) K/uL Abs Immat Gran (auto) 0.06 (0.00-0.30) K/uL Imm/Tot Granulo (auto) 1.0 % Diff Slide Review Acceptable Review (Acceptable) Sodium 138 (135-149) mmol/L Potassium 3.8 (3.6-5.1) mmol/L Chloride 105 (96-114) mmol/L Carbon Dioxide 24 (20-32) mmol/L Anion Gap 9 (7-15) mEq/L BUN 23 (7-30) mg/dL Creatinine 0.8 (0.5-1.5) mg/dL Estimated Creat Clear 48.45 Estimated GFR 80 ml/min Glucose 134 H (60-115) mg/dL Lactate 3.4 H (0.5-1.9) mmol/L Calcium 9.2 (8.4-10.6) mg/dL Total Bilirubin 0.8 (0.1-1.5) mg/dL Direct Bilirubin 0.3 (0.0-0.5) mg/dL AST 33 (12-35) U/L ALT 23 (4-35) U/L Alkaline Phosphatase 81 (40-150) U/L Total Protein 6.7 (6.0-8.3) g/dL Albumin 4.3 (3.3-5.0) g/dL TSH 3.240 (0.270-4.20) uIU/mL <Diaz Martinez MD - Last Filed: 04/20/25 13:31> Discharge Plan Discharge Clinical Impression: Generalized seizure <Kaushal Bess MD - Last Filed: 04/23/25 17:00> Patient Disposition: Home, Self-Care <Kaushal Bess MD - Last Filed: 04/23/25 17:00> Condition: Stable <Kaushal Bess MD - Last Filed: 04/23/25 17:00> Instructions: New-Onset Seizure in Adults (ED) <Kaushal Bess MD - Last Filed: 04/23/25 17:00> Additional Instructions: Keppra as directed Continue current medications Follow-up with neurology as discussed. <Kaushal Bess MD - Last Filed: 04/23/25 17:00> Activity Level: No Restrictions <Kaushal Bess MD - Last Filed: 04/23/25 17:00> No Restrictions <Diaz Martinez MD - Last Filed: 04/20/25 13:31> Discharge Diet: Regular <Kaushal Bess MD - Last Filed: 04/23/25 17:00> Regular <Diaz Martinez MD - Last Filed: 04/20/25 13:31> Prescriptions: New levetiracetam [Keppra] 750 mg tablet 750 mg PO BID Qty: 60 3RF No Action metronidazole 0.75 % cream 1 applic topical BID PRN glatiramer 40 mg/mL syringe 40 mg subcut .3 x weekly omega-3 fatty acids 500 mg capsule 500 mg PO DAILY multivitamin Tablet 1 tab PO DAILY ketoconazole 2 % cream 1 applic topical DAILY PRN (Reason: rash) Qty: 60 0RF cholecalciferol (vitamin D3) 1,000 unit PO DAILY atorvastatin 40 mg tablet 40 mg PO HS Qty: 90 3RF atenolol 100 mg tablet 100 mg PO DAILY Qty: 90 3RF azithromycin 250 mg tablet 250 mg PO .2 x weekly PRN (Reason: rash) Qty: 36 8RF Rx Instructions: Take 1-2 tablets weekly, NEEDED metformin 1,000 mg tablet 1,000 mg PO BIDWMEAL Qty: 180 1RF valsartan-hydrochlorothiazide 80-12.5 mg tablet 1 tab PO QDAY Qty: 90 3RF clopidogrel 75 mg tablet 75 mg PO DAILY Qty: 90 1RF <Kaushal Bess MD - Last Filed: 04/23/25 17:00> Follow Up/Referrals: Melissa Gillette MD [Primary Care Provider, Internal Medicine] <Kaushal Bess MD - Last Filed: 04/23/25 17:00> Stand Alone Forms: [facility] Info Instructions <Kaushal Bess MD - Last Filed: 04/23/25 17:00>
[2025-04-20] MEDS: ACETAMINOPHEN 500 MG TABLET 1000 MG PO (07:26)
[2025-04-20 07:55] LABS: Hematocrit* 37.1 % (33.0-51.0); Hemoglobin* 12.8 gm/dL (12.0-16.0); Immature Granulocytes Abs Auto 0.06 K/uL (0.00-0.30); Immature Granulocytes Pct Auto 1.0 %; Lymphocytes Absolute Auto 0.70 K/uL (0.90-2.90); Mean Corpuscular HGB Conc 35 gm/dL (32-36); Mean Corpuscular Hemoglobin 30 pg (26-34); Mean Corpuscular Volume 87 fL (80-100); RDW Coefficient of Variation % 13.1 % (11.5-15.5); Red Blood Count* 4.27 m/uL (4.00-5.20); White Blood Count* 5.96 K/uL (4.50-11.00)
[2025-04-20 07:57] LABS: Lactate* 3.4 mmol/L (0.5-1.9)
[2025-04-20 08:09] LABS: Albumin* 4.3 g/dL (3.3-5.0); Chloride* 105 mmol/L (96-114); Potassium* 3.8 mmol/L (3.6-5.1); Sodium* 138 mmol/L (135-149)
[2025-04-20 08:11] LABS: Slide Review Reflex Yes
[2025-04-20 08:12] LABS: Alanine Aminotransferase* 23 U/L (4-35); Alkaline Phosphatase* 81 U/L (40-150); Anion Gap 9 mEq/L (7-15); Aspartate Amino Transferase* 33 U/L (12-35); Bilirubin Direct* 0.3 mg/dL (0.0-0.5); Bilirubin Total* 0.8 mg/dL (0.1-1.5); Blood Urea Nitrogen* 23 mg/dL (7-30); Carbon Dioxide* 24 mmol/L (20-32); Creatinine* 0.8 mg/dL (0.5-1.5); Est. Creatinine Clearance* 48.45; Estimated Glomerular Filt Rate 80 ml/min; Total Protein* 6.7 g/dL (6.0-8.3)
[2025-04-20 08:13] LABS: Calcium* 9.2 mg/dL (8.4-10.6); Glucose* 134 mg/dL (60-115)
[2025-04-20 08:27] LABS: Slide Review Acceptable Review (Acceptable)
--- NOTE | 2025-04-20 08:29 | CRLHL7_ITS ---
For Patients: As a result of the Century Cures Act, medical imaging exams and procedure reports are released immediately into your electronic medical record. You may view this report before your referring provider. If you have questions, please contact your health care provider. Indication: Seizure Technique: Multiplanar, multisequence MR images of the brain were obtained before and after the administration of intravenous gadolinium. A seizure protocol was utilized 20 cc Dotarem Comparison: CT head April 20, 2025 and MRI brain with and without contrast January 14 2017 Findings: On midline sagittal T1 images, there are preserved flow voids and sagittal sinuses. There is demonstration of new increased signal throughout the genu of the corpus callosum on T2/FLAIR sequences with areas of new lacunar change adjacent to the frontal horn of the left lateral ventricle. There is additional demonstration of scattered nonspecific T2/FLAIR hyperintensities throughout the subcortical and periventricular white matter which have diffusely increased in size and conspicuity from remote comparison exam with new lacunar changes adjacent to the atrium of the right lateral ventricle. Suggestion of mild periventricular T2/FLAIR hyperintensities from previous exam. The pituitary gland is unremarkable without evidence of remodeling of the sella turcica. There is no significant cerebellar tonsillar ectopia. On diffusion-weighted sequences, there is no evidence of acute or subacute infarct. On blood sensitive sequences, there is no evidence of or chronic hemorrhage. There is global cortical atrophy with mild sulcal widening and ex vacuo dilatation of the lateral ventricles. Increased lacunar changes of the basal ganglia from remote prior exam. Otherwise, the bilateral hippocampal formations are grossly symmetrical without evidence of architectural distortion or significantly increased FLAIR signal suggestive of mesial temporal sclerosis. Contrast images are somewhat limited due to motion artifact. Otherwise, no evidence of abnormal enhancement. The flow voids at the skull base are unremarkable. The orbits and their contents are within normal limits. There is minimal chronic mucosal thickening within the paranasal sinuses. The mastoid air cells are clear. Impression: 1. Interval development of new T2/FLAIR hyperintense signal within the genu of the corpus callosum with associated new lacunar changes from remote MR comparison. There are increased T2/FLAIR white matter hyperintensities within the subcortical and periventricular white matter which may represent progression of chronic small vessel disease and/or sequela of remote lacunar infarcts. No evidence of additional specific perivenular FLAIR hyperintensities to suggest atypical presentation of autoimmune demyelination such as multiple sclerosis. No evidence of abnormal contrast enhancement. 2. Grossly normal appearance of the hippocampal formations without evidence of architectural distortion or abnormal enhancement to suggest mesial temporal sclerosis. 3. Otherwise no acute intracranial abnormality. Dictated by Fran Del Castillo MD @ 04/20/2025 12:28:54 PM (Electronically Signed)
[2025-04-20] MEDS: LEVETIRACETAM 1,000 mg/100 ml INFUSION 2000 MG IVPB (09:05)
== END 2025-04-20 14:44 | disposition home or self-care (01) ==
PROVIDERS: Emergency Provider Family Medicine; PCP Internal Medicine
DX: G40.89 Other seizures (principal); G35.D Multiple sclerosis, unspecified; Z79.899 Other long term (current) drug therapy
CPT/HCPCS: 36415; 70450; 70553; 80048; 80076; 83605; 84443; 85025; 99284; 99285; A9270; A9575; J1953